=== PATIENT | female | born 1995 | race Caucasian/White ===

== ENCOUNTER 2018-11-13 23:23 | Emergency (ER) | payer SELFPAY ==
--- NOTE | 2018-11-14 00:12 | ER ---
Nurse's Notes [facility] Name: Kristyn Crain Age: 22 yrs Sex: Female : 1995 Arrival Date: 11/13/2018 Time: 23:30 Bed 11 Private MD: Diagnosis: Anxiety disorder, unspecified Presentation: 11/13 23:57 Presenting complaint: Patient states: she has been having anxiety for a week which is bb getting worse pt was seen at [facility] today and was med-screened and while driving home she was afraid if the anxiety didn't stop she might harm herself. Pt states she is from [place] and was diagnosed with anxiety, depression, and bipolar she was started on [place] but because she did not feel ready for therapy she did not continue the medication. Transition of care: patient was not received from another setting of care. Onset of symptoms was November 07, 2018. Risk Assessment: Do you want to hurt yourself or someone else? Patient reports no desire to harm self or others. Initial Sepsis Screen: Does the patient meet any 2 criteria? No. Patient's initial sepsis screen is negative. Does the patient have a suspected source of infection? No. Patient's initial sepsis screen is negative. Care prior to arrival: None. 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 - Social history:: Smoking status: Patient/guardian denies using tobacco, Patient/guardian denies using alcohol, street drugs. - Ebola Screening: : No symptoms or risks identified at this time. Screenin:02 Abuse screen: Denies threats or abuse. Nutritional screening: No deficits noted. bb Tuberculosis screening: No symptoms or risk factors identified. Fall Risk None identified. Assessment: 00:02 General: Appears in no apparent distress. Behavior is calm, cooperative. Pain: Denies bb pain. Neuro: Level of Consciousness is awake, alert, obeys commands, Oriented to person, place, time, situation. Neuro: Reports feeling anxious. Cardiovascular: No deficits noted. Respiratory: Respiratory effort is even, unlabored, Respiratory pattern is regular. GI: No signs and/or symptoms were reported involving the gastrointestinal system. Derm: Skin is pink, warm \T\ dry. Musculoskeletal: Circulation, motion, and sensation intact. 00:19 Reassessment: pt refused medication states she is feeling better and has an appointment bb tomorrow with [facility]. Instructed pt is symptoms worsen to return to ED for further evaluation and treatment. Pt verbalized understanding of and agrees to plan of care discharge instructions given. Pt ambulated with steady gait to exit accompanied by friend. Vital Signs: 00:00 BP 122 / 77; Pulse 78; Resp 16 S; Temp 98.3(O); Pulse Ox 100% on R/A; Weight 78.93 kg bb (R); Height 5 ft. 2 in. (157.48 cm) (R); Pain 0/10; 00:00 Body Mass Index 31.82 (78.93 kg, 157.48 cm) bb ED Course: 11/13 23:30 Patient arrived in ED. ds1 23:50 Day Tamez FNP-C is [facility]. kb 23:50 Reed Maldonado MD is Attending Physician. kb 11/14 00:00 Triage completed. bb 00:00 Arm band placed on Patient placed in an exam room, on a stretcher, on pulse oximetry. bb Family accompanied patient. 00:02 Patient has correct armband on for positive identification. Bed in low position. Call bb light in reach. Adult w/ patient. Pulse ox on. NIBP on. 00:02 No provider procedures requiring assistance completed. Patient did not have IV access bb during this emergency room visit. Administered Medications: 00:11 Not Given (Patient Refused): hydrOXYzine 25 mg PO once de Outcome: 00:11 Discharge ordered by . padmini 00:21 Discharged to home ambulatory, with friend. bb 00:21 Condition: stable 00:21 Discharge instructions given to patient, Instructed on discharge instructions, follow up and referral plans. Demonstrated understanding of instructions, follow-up care. 00:21 Patient left the ED. bb Signatures: Day Tamez FNP-C FNP-Ckb Sanford, Demi ds1 Hui Bro RN RN bb Bunch, Donnalyn RN de
--- NOTE | 2018-11-14 00:13 | EDPHYS ---
Physician Documentation [facility] Name: Kristyn Crain Age: 22 yrs Sex: Female : 1995 Arrival Date: 11/13/2018 Time: 23:30 Bed 11 Private MD: ED Physician Reed Maldonado HPI: 11/14 00:59 This 22 yrs old Female presents to ER via Ambulatory with complaints of kb Anxiety. 01:00 The patient presents to the emergency department with anxiety. Onset: The kb symptoms/episode began/occurred last week. Past psychiatric history: Prior diagnosis: bipolar disorder, depression. Associated signs and symptoms: Pertinent positives; anxiety, Pertinent negatives: abdominal pain, chest pain, chills, delusions, depression, fever, hallucinations, headache, homicidal ideation, nausea, night sweats, palpitations, paranoia, shortness of breath, substance abuse, suicide ideation, tremor, vomiting. Severity of symptoms: At their worst the symptoms were moderate in the emergency department the symptoms are unchanged. The patient has experienced similar episodes in the past. The patient has been recently seen by a physician: the ER physician, out of Town, with similar presenting complaints. Pt reports she has had anxiety attacks for the past week. Has been diagnosed with anxiety, depression and bipolar. Stopped lithium 7 months ago. Went to [place] ER today and was medically screened. Has appt [facility] tomorrow. . 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 - Social history:: Smoking status: Patient/guardian denies using tobacco, Patient/guardian denies using alcohol, street drugs. - Ebola Screening: : No symptoms or risks identified at this time. ROS: 00:59 Constitutional: Negative for fever, chills, and weight loss, ENT: Negative for injury, kb pain, and discharge, Neck: Negative for injury, pain, and swelling, Cardiovascular: Negative for chest pain, palpitations, and edema, Respiratory: Negative for shortness of breath, cough, wheezing, and pleuritic chest pain, Abdomen/GI: Negative for abdominal pain, nausea, vomiting, diarrhea, and constipation, MS/Extremity: Negative for injury and deformity, Skin: Negative for injury, rash, and discoloration, Neuro: Negative for headache, weakness, numbness, tingling, and seizure. 00:59 Psych: Positive for anxiety, Negative for depression, drug dependence, alcohol dependence, auditory hallucinations, visual hallucinations, homicidal ideation, insomnia, suicide gesture, suicidal ideation. Exam: 00:58 Constitutional: This is a well developed, well nourished patient who is awake, alert, kb and in no acute distress. Head/Face: Normocephalic, atraumatic. Chest/axilla: Normal chest wall appearance and motion. Nontender with no deformity. No lesions are appreciated. Cardiovascular: Regular rate and rhythm with a normal S1 and S2. No gallops, murmurs, or rubs. Normal PMI, no JVD. No pulse deficits. Respiratory: Lungs have equal breath sounds bilaterally, clear to auscultation and percussion. No rales, rhonchi or wheezes noted. No increased work of breathing, no retractions or nasal flaring. Abdomen/GI: Soft, non-tender, with normal bowel sounds. No distension or tympany. No guarding or rebound. No evidence of tenderness throughout. Skin: Warm, dry with normal turgor. Normal color with no rashes, no lesions, and no evidence of cellulitis. MS/ Extremity: Pulses equal, no cyanosis. Neurovascular intact. Full, normal range of motion. Neuro: Awake and alert, GCS 15, oriented to person, place, time, and situation. Cranial nerves II-XII grossly intact. Motor strength 5/5 in all extremities. Sensory grossly intact. Cerebellar exam normal. Normal gait. 00:58 Psych: Behavior/mood is pleasant, cooperative, Affect is calm, Oriented to person, place, time, Patient has no thoughts/intents to harm self or others. Judgement / Insight is normal. Memory is normal. Delusions/hallucinations are not present. Vital Signs: 00:00 BP 122 / 77; Pulse 78; Resp 16 S; Temp 98.3(O); Pulse Ox 100% on R/A; Weight 78.93 kg bb (R); Height 5 ft. 2 in. (157.48 cm) (R); Pain 0/10; 00:00 Body Mass Index 31.82 (78.93 kg, 157.48 cm) bb MDM: 11/13 23:50 Patient medically screened. kb 11/14 00:58 Data reviewed: vital signs, nurses notes. Data interpreted: Pulse oximetry: on room air kb is 100 %. Interpretation: normal. Counseling: I had a detailed discussion with the patient and/or guardian regarding: the historical points, exam findings, and any diagnostic results supporting the discharge/admit diagnosis, the need for outpatient follow up, a psychiatrist, to return to the emergency department if symptoms worsen or persist or if there are any questions or concerns that arise at home. ED course: Pt does not want to take any medication. Wants to go home and go to [facility] tomorrow. Administered Medications: 00:11 Not Given (Patient Refused): hydrOXYzine 25 mg PO once de Disposition: 02:07 Co-signature as Attending Physician, Reed Maldonado MD. yisel Disposition: 11/14/18 00:11 Discharged to Home. Impression: Anxiety disorder, unspecified. - Condition is Stable. - Discharge Instructions: Panic Attacks, [id number]. - Medication Reconciliation Form, Thank You Letter, Antibiotic Education, Prescription Opioid Use form. - Follow up: Emergency Department; When: As needed; Reason: Worsening of condition. Follow up: Private Physician; When: 2 - 3 days; Reason: Recheck today's complaints, Continuance of care, Re-evaluation by your physician. Signatures: Day Tamez, VINNY-Raiza CASILLAS-Hui Caal RN RN bb Starr, Gregory, MD MD Anali Bunch RN de Corrections: (The following items were deleted from the chart) 00:21 00:11 11/14/2018 00:11 Discharged to Home. Impression: Anxiety disorder, unspecified. bb Condition is Stable. Forms are Medication Reconciliation Form, Thank You Letter, Antibiotic Education, Prescription Opioid Use. Follow up: Emergency Department; When: As needed; Reason: Worsening of condition. Follow up: Private Physician; When: 2 - 3 days; Reason: Recheck today's complaints, Continuance of care, Re-evaluation by your physician. kb
[2018-11-14] MEDS ORDERED: hydrOXYzine HCl 25 MG TAB ONE (00:18)
== END 2018-11-14 00:21 | disposition home or self-care (01) ==
LOC: ER 23:23
DX: F41.9 Anxiety disorder, unspecified (principal); F32.9 Major depressive disorder, single episode, unspecified; F31.9 Bipolar disorder, unspecified
CPT/HCPCS: 99283

== ENCOUNTER 2018-11-14 16:54 | Emergency (ER) | payer SELFPAY ==
--- OUTSIDE RECORDS SUMMARY | 2018-11-14 16:57 | XMS REPORT ---
:1995 [facility] Address [address] [place] [address] Dr. Richardson [address] [place] [id number] Care Team Providers Name Role Phone Unavailable Unavailable Unavailable Problems This patient has no known problems. Allergies, Adverse Reactions, Alerts This patient has no known allergies or adverse reactions. Medications This patient has no known medications.
[2018-11-14] MEDS ORDERED: hydrOXYzine HCl 25 MG TAB ONE (18:29)
--- NOTE | 2018-11-14 19:24 | ER ---
Nurse's Notes [facility] Name: Kristyn Crain Age: 22 yrs Sex: Female : 1995 Arrival Date: 11/14/2018 Time: 16:55 Bed 6 Private MD: Diagnosis: Anxiety disorder, unspecified Presentation: 11/14 17:07 Presenting complaint: Patient states: i came last night with anxiety attacks, if it is ss worse to come back; the anxiety is worse today; denies SI tendencies;. Transition of care: patient was not received from another setting of care. Onset of symptoms was November 14, 2018. Risk Assessment: Do you want to hurt yourself or someone else? Patient reports no desire to harm self or others. Initial Sepsis Screen: Does the patient meet any 2 criteria? No. Patient's initial sepsis screen is negative. Does the patient have a suspected source of infection? No. Patient's initial sepsis screen is negative. Care prior to arrival: None. 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 - Social history:: Smoking status: Patient/guardian denies using tobacco. - Ebola Screening: : No symptoms or risks identified at this time. Screenin:00 Abuse screen: Denies threats or abuse. Denies injuries from another. Nutritional ph screening: No deficits noted. Tuberculosis screening: No symptoms or risk factors identified. Fall Risk None identified. Assessment: 18:15 General: Appears in no apparent distress. comfortable, Behavior is calm, cooperative. ph Pain: Denies pain. Neuro: Level of Consciousness is awake, alert, obeys commands, Oriented to person, place, time, situation. Cardiovascular: Capillary refill < 3 seconds in bilateral fingers Patient's skin is warm and dry. Respiratory: Airway is patent Respiratory effort is even, unlabored. Derm: Skin is intact, is healthy with good turgor, Skin is pink, warm \T\ dry. 19:30 Reassessment: Patient appears in no apparent distress at this time. Patient and/or ph family updated on plan of care and expected duration. Pain level reassessed. Patient is alert, oriented x 3, equal unlabored respirations, skin warm/dry/pink. Pt reports that anxiety has improved, d/c home w/ SO. Vital Signs: 17:08 BP 116 / 75; Pulse 84; Resp 18; Temp 97.7(TE); Pulse Ox 99% on R/A; Weight 78.93 kg; Height 5 ft. 2 in. (157.48 cm); 18:30 BP 115 / 78; Pulse 76; Resp 16; Temp 98.0; Pulse Ox 99% on R/A; ph 17:08 Body Mass Index 31.83 (78.93 kg, 157.48 cm) ED Course: 16:55 Patient arrived in ED. as 17:08 Triage completed. 17:09 Arm band placed on right wrist. 17:47 Coy Salinas [facility] is [email or web address]] 17:47 Erick Henry MD is Attending Physician. [facility] [[email or web address]] 18:00 Patient has correct armband on for positive identification. Bed in low position. Call ph light in reach. Pulse ox on. NIBP on. Door closed. Warm blanket given. 18:14 Sosa Bates RN is Primary Nurse. ph 19:13 Attending Physician role handed off by Erick Henry MD [facility] 19:13 Montana Jordan MD is Attending Physician. [facility] 19:45 No provider procedures requiring assistance completed. Patient did not have IV access ph during this emergency room visit. Administered Medications: 18:21 Drug: hydrOXYzine 50 mg Route: PO; ph 19:00 Follow up: Response: No adverse reaction; Pain is decreased ph Outcome: 19:23 Discharge ordered by . Luann 19:45 Discharged to home ambulatory, with significant other. ph 19:45 Condition: improved 19:45 Discharge instructions given to patient, Instructed on discharge instructions, follow up and referral plans. medication usage, Demonstrated understanding of instructions, follow-up care, medications, Prescriptions given X 1. 19:47 Patient left the ED. Signatures: Montana Jordan MD MD cha Martinez, Amelia as Smirch, Shelby, RN RN Coy Salinas PA PA [facility] [[email or web address]] Sosa Bates RN RN ph Corrections: (The following items were deleted from the chart) 17:32 17:07 Acuity: ISAIAH 3 ss ss
--- NOTE | 2018-11-14 19:24 | EDPHYS ---
Physician Documentation [facility] Name: Kristyn Crain Age: 22 yrs Sex: Female : 1995 Arrival Date: 11/14/2018 Time: 16:55 Bed 6 Private MD: ED Physician Montana Jordan HPI: 11/14 18:26 This 22 yrs old Female presents to ER via Ambulatory with complaints of jr8 Anxiety. 18:26 The patient presents to the emergency department with anxiety. Onset: The jr8 symptoms/episode began/occurred gradually, 1 week(s) ago. Past psychiatric history: Prior diagnosis: bipolar disorder, depression. Associated signs and symptoms: The patient has no apparent associated signs or symptoms. Severity of symptoms: At their worst the symptoms were mild in the emergency department the symptoms are unchanged. The patient has experienced similar episodes in the past, a few times. The patient has been recently seen by a physician:. Patient stated that she periodically has anxiety attacks. Stated that she normally is able to control them but for the past week cannot. Has appointment with [facility]. Stated that she came to ED last night but was to afraid to take anything. Came back today because she knows she needs the help . 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 - Social history:: Smoking status: Patient/guardian denies using tobacco. - Ebola Screening: : No symptoms or risks identified at this time. ROS: 18:26 Eyes: Negative for injury, pain, redness, and discharge, ENT: Negative for injury, jr8 pain, and discharge, Neck: Negative for injury, pain, and swelling, Cardiovascular: Negative for chest pain, palpitations, and edema, Respiratory: Negative for shortness of breath, cough, wheezing, and pleuritic chest pain, Abdomen/GI: Negative for abdominal pain, nausea, vomiting, diarrhea, and constipation, Back: Negative for injury and pain, MS/Extremity: Negative for injury and deformity, Skin: Negative for injury, rash, and discoloration, Neuro: Negative for headache, weakness, numbness, tingling, and seizure. 18:26 Psych: Positive for anxiety, Negative for depression, auditory hallucinations, visual hallucinations, insomnia, suicide gesture, suicidal ideation. Exam: 18:26 Eyes: Pupils equal round and reactive to light, extra-ocular motions intact. Lids and jr8 lashes normal. Conjunctiva and sclera are non-icteric and not injected. Cornea within normal limits. Periorbital areas with no swelling, redness, or edema. ENT: Nares patent. No nasal discharge, no septal abnormalities noted. Tympanic membranes are normal and external auditory canals are clear. Oropharynx with no redness, swelling, or masses, exudates, or evidence of obstruction, uvula midline. Mucous membranes moist. Neck: Trachea midline, no thyromegaly or masses palpated, and no cervical lymphadenopathy. Supple, full range of motion without nuchal rigidity, or vertebral point tenderness. No Meningismus. Cardiovascular: Regular rate and rhythm with a normal S1 and S2. No gallops, murmurs, or rubs. Normal PMI, no JVD. No pulse deficits. Respiratory: Lungs have equal breath sounds bilaterally, clear to auscultation and percussion. No rales, rhonchi or wheezes noted. No increased work of breathing, no retractions or nasal flaring. Abdomen/GI: Soft, non-tender, with normal bowel sounds. No distension or tympany. No guarding or rebound. No evidence of tenderness throughout. Back: No spinal tenderness. No costovertebral tenderness. Full range of motion. Skin: Warm, dry with normal turgor. Normal color with no rashes, no lesions, and no evidence of cellulitis. MS/ Extremity: Pulses equal, no cyanosis. Neurovascular intact. Full, normal range of motion. Neuro: Awake and alert, GCS 15, oriented to person, place, time, and situation. Cranial nerves II-XII grossly intact. Motor strength 5/5 in all extremities. Sensory grossly intact. Cerebellar exam normal. Normal gait. Psych: Awake, alert, with orientation to person, place and time. Behavior, mood, and affect are within normal limits. Vital Signs: 17:08 BP 116 / 75; Pulse 84; Resp 18; Temp 97.7(TE); Pulse Ox 99% on R/A; Weight 78.93 kg; ss Height 5 ft. 2 in. (157.48 cm); 18:30 BP 115 / 78; Pulse 76; Resp 16; Temp 98.0; Pulse Ox 99% on R/A; ph 17:08 Body Mass Index 31.83 (78.93 kg, 157.48 cm) ss MDM: 18:02 Patient medically screened. jr8 19:21 Data reviewed: vital signs, nurses notes, and as a result, I will discharge patient. jr8 Data interpreted: Pulse oximetry: on room air is 99 %. Interpretation: normal. Counseling: I had a detailed discussion with the patient and/or guardian regarding: the historical points, exam findings, and any diagnostic results supporting the discharge/admit diagnosis, the need for outpatient follow up, a psychiatrist, to return to the emergency department if symptoms worsen or persist or if there are any questions or concerns that arise at home. Response to treatment: the patient's symptoms have markedly improved after treatment. Administered Medications: 18:21 Drug: hydrOXYzine 50 mg Route: PO; ph 19:00 Follow up: Response: No adverse reaction; Pain is decreased ph Disposition: 11/15 07:01 Co-signature as Attending Physician, Montana Jordan MD I agree with the assessment and kdr plan of care. Disposition: 11/14/18 19:23 Discharged to Home. Impression: Anxiety disorder, unspecified. - Condition is Stable. - Discharge Instructions: Panic Attacks, Generalized Anxiety Disorder. - Prescriptions for Hydroxyzine HCl 50 mg Oral Tablet - take 1 tablet by ORAL route every 8 hours As needed; 90 tablet. - Medication Reconciliation Form, Thank You Letter, Antibiotic Education, Prescription Opioid Use form. - Follow up: Private Physician; When: 2 - 3 days; Reason: Recheck today's complaints, Continuance of care, Re-evaluation by your physician. - Problem is new. - Symptoms have improved. Signatures: Erick Henry MD MD [facility] Darlene Gonzalez RN RN Coy Salinas PA PA jr8 Sosa Bates RN RN ph Corrections: (The following items were deleted from the chart) 11/14 19:47 19:23 11/14/2018 19:23 Discharged to Home. Impression: Anxiety disorder, unspecified. ss Condition is Stable. Forms are Medication Reconciliation Form, Thank You Letter, Antibiotic Education, Prescription Opioid Use. Follow up: Private Physician; When: 2 - 3 days; Reason: Recheck today's complaints, Continuance of care, Re-evaluation by your physician. Problem is new. Symptoms have improved. jr8
== END 2018-11-14 19:47 | disposition home or self-care (01) ==
LOC: ER 16:54
DX: F41.9 Anxiety disorder, unspecified (principal); F31.9 Bipolar disorder, unspecified; F32.9 Major depressive disorder, single episode, unspecified
CPT/HCPCS: 99283

== ENCOUNTER 2018-11-14 22:15 | Emergency (ER) | payer SELFPAY ==
--- OUTSIDE RECORDS SUMMARY | 2018-11-14 22:18 | XMS REPORT ---
:1995 [facility] Address [address] [place] [address] Dr. Richardson [address] [place] [id number] Care Team Providers Name Role Phone Unavailable Unavailable Unavailable Problems This patient has no known problems. Allergies, Adverse Reactions, Alerts This patient has no known allergies or adverse reactions. Medications This patient has no known medications.
--- NOTE | 2018-11-14 22:50 | EDPHYS ---
Physician Documentation [facility] Name: Kristyn Crain Age: 22 yrs Sex: Female : 1995 Arrival Date: 11/14/2018 Time: 22:18 Bed 14 Private MD: ED Physician Chintan Snow HPI: 11/14 22:46 This 22 yrs old Female presents to ER via Ambulatory with complaints of jay jay Anxiety, Suicidal Ideation. 22:46 The patient presents to the emergency department with anxiety, depression, suicide jay jay ideation, and the patient has a plan, to cut oneself and bleed. Onset: The symptoms/episode began/occurred 2 day(s) ago. Past psychiatric history: Prior diagnosis: bipolar disorder, depression, Psychiatric medications include: none. Associated signs and symptoms: The patient has no apparent associated signs or symptoms. Severity of symptoms: At their worst the symptoms were mild. The patient has not experienced similar symptoms in the past. 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 - Social history:: Smoking status: Patient/guardian denies using tobacco. - Ebola Screening: : Patient negative for fever greater than or equal to 101.5 degrees Fahrenheit, and additional compatible Ebola Virus Disease symptoms Patient denies exposure to infectious person Patient denies travel to an Ebola-affected area in the 21 days before illness onset No symptoms or risks identified at this time. - Family history:: not pertinent. ROS: 22:46 Constitutional: Negative for fever, chills, and weight loss, Eyes: Negative for injury, jay jay pain, redness, and discharge, ENT: Negative for injury, pain, and discharge, Neck: Negative for injury, pain, and swelling, Cardiovascular: Negative for chest pain, palpitations, and edema, Respiratory: Negative for shortness of breath, cough, wheezing, and pleuritic chest pain, Abdomen/GI: Negative for abdominal pain, nausea, vomiting, diarrhea, and constipation, Back: Negative for injury and pain, : Negative for injury, bleeding, discharge, and swelling, MS/Extremity: Negative for injury and deformity, Skin: Negative for injury, rash, and discoloration, Neuro: Negative for headache, weakness, numbness, tingling, and seizure, Allergy/Immunology: Negative for hives, rash, and allergies, Endocrine: Negative for neck swelling, polydipsia, polyuria, polyphagia, and marked weight changes, Hematologic/Lymphatic: Negative for swollen nodes, abnormal bleeding, and unusual bruising. 22:46 Psych: Positive for anxiety, depression, suicidal ideation. Exam: 22:46 Constitutional: This is a well developed, well nourished patient who is awake, alert, jay jay and in no acute distress. Head/Face: Normocephalic, atraumatic. Eyes: Pupils equal round and reactive to light, extra-ocular motions intact. Lids and lashes normal. Conjunctiva and sclera are non-icteric and not injected. Cornea within normal limits. Periorbital areas with no swelling, redness, or edema. ENT: Nares patent. No nasal discharge, no septal abnormalities noted. Tympanic membranes are normal and external auditory canals are clear. Oropharynx with no redness, swelling, or masses, exudates, or evidence of obstruction, uvula midline. Mucous membranes moist. Neck: Trachea midline, no thyromegaly or masses palpated, and no cervical lymphadenopathy. Supple, full range of motion without nuchal rigidity, or vertebral point tenderness. No Meningismus. Chest/axilla: Normal chest wall appearance and motion. Nontender with no deformity. No lesions are appreciated. Cardiovascular: Regular rate and rhythm with a normal S1 and S2. No gallops, murmurs, or rubs. Normal PMI, no JVD. No pulse deficits. Respiratory: Lungs have equal breath sounds bilaterally, clear to auscultation and percussion. No rales, rhonchi or wheezes noted. No increased work of breathing, no retractions or nasal flaring. Abdomen/GI: Soft, non-tender, with normal bowel sounds. No distension or tympany. No guarding or rebound. No evidence of tenderness throughout. Back: No spinal tenderness. No costovertebral tenderness. Full range of motion. Female : Normal external genitalia. Skin: Warm, dry with normal turgor. Normal color with no rashes, no lesions, and no evidence of cellulitis. MS/ Extremity: Pulses equal, no cyanosis. Neurovascular intact. Full, normal range of motion. Neuro: Awake and alert, GCS 15, oriented to person, place, time, and situation. Cranial nerves II-XII grossly intact. Motor strength 5/5 in all extremities. Sensory grossly intact. Cerebellar exam normal. Normal gait. Psych: Awake, alert, with orientation to person, place and time. Behavior, mood, and affect are within normal limits. Vital Signs: 22:24 BP 121 / 76; Pulse 102; Resp 18; Temp 98.2; Pulse Ox 96% on R/A; Weight 78.93 kg; ed1 Height 5 ft. 2 in. (157.48 cm); Pain 7/10; 11/15 03:09 BP 106 / 81; Pulse 66; Resp 16; Pulse Ox 98% on R/A; mt 06:26 BP 102 / 68; Pulse 74; Resp 16; Pulse Ox 99% on R/A; mt 08:57 BP 106 / 68; Pulse 67; Resp 15; Temp 98.2(O); Pulse Ox 99% on R/A; Pain 0/10; hb 16:00 BP 105 / 73; Pulse 73; Resp 18; Temp 98.6; Pulse Ox 98% ; Pain 0/10; dj 22:57 BP 105 / 81; Pulse 81; Resp 16; Temp 98.6(O); Pulse Ox 100% on R/A; ag4 11/16 07:31 BP 104 / 74; Pulse 72; Resp 18; Temp 97.4(O); Pulse Ox 99% on R/A; mh5 11:23 BP 99 / 61; Pulse 71; Resp 16; Temp 98.2(O); Pulse Ox 99% on R/A; mh5 15:33 BP 109 / 71; Pulse 75; Resp 16; Temp 98.7(O); Pulse Ox 99% on R/A; mh5 19:00 BP 108 / 72; Pulse 84; Resp 18; Temp 98.5; Pulse Ox 92% on R/A; kj1 11/17 00:09 BP 109 / 80; Pulse 89; Resp 18; Temp 98.5; Pulse Ox 100% on R/A; tr4 06:32 BP 103 / 69; Pulse 81; Resp 14; Temp 97.5; Pulse Ox 99% on R/A; rr5 10:42 BP 99 / 68; Pulse 78; Resp 15; Temp 97.8(O); Pulse Ox 99% on R/A; mh5 15:00 BP 106 / 77; Pulse 86; Resp 16; Temp 98.2(O); Pulse Ox 99% on R/A; mh5 17:32 BP 102 / 78; Pulse 78; Resp 16; Temp 98.0(O); Pulse Ox 98% on R/A; mh5 21:30 BP 116 / 75; Pulse 75; Resp 18; Temp 98.6; Pulse Ox 97% ; Pain 0/10; sr6 11/18 01:00 BP 108 / 69; Pulse 74; Resp 18; Temp 98.3; Pulse Ox 97% ; Pain 0/10; sr6 06:00 BP 100 / 74; Pulse 65; Resp 17; Temp 97.9; Pulse Ox 98% ; Pain 0/10; sr6 10:30 BP 107 / 72; Pulse 71; Resp 16; Temp 97.8; Pulse Ox 100% on R/A; ph 11/14 22:24 Body Mass Index 31.82 (78.93 kg, 157.48 cm) ed1 MDM: 11/14 22:32 Patient medically screened. [facility] 22:48 Data reviewed: vital signs, nurses notes, lab test result(s), EKG. jay jay 11/16 07:27 ED course: Pt calm, resting, normal vitals, awaiting transfer for SI. . rn 11/17 01:25 ED course: The patient continues to rest comfortably in the ED. She continues to kdr maintain her SI intentions. There are no other ongoing or new concerns at this time. 05:20 ED course: The patient is sleeping and has not needed any further medical intervention kdr to remain stable. 11/18 07:27 ED course: Pt calm and resting this AM, still reports suicidal thoughts but feels less rn impulsive, still waiting on transfer, no acceptance yet. . 10:11 ED course: Called out [facility] again because no luck of transfer/placement as well as rn patient denying suicidal ideation for last 2 days. Evaluated and deemed safe for discharge, patient feels much better after talking with nurse aide evaluator and they have planned for expedited outpt workup and evaluation. Denies suicidal ideation to me and feels safer going home.. 11/14 22:32 Order name: Acetaminophen; Complete Time: 02:32 [facility] 11/14 22:32 Order name: Basic Metabolic Panel; Complete Time: 02:32 [facility] 11/14 22:32 Order name: CBC with Diff; Complete Time: 02:32 [facility] 11/14 22:32 Order name: ETOH Level; Complete Time: 02:32 [facility] 11/14 22:32 Order name: Hepatic Function; Complete Time: 02:32 [facility] 11/14 22:32 Order name: PT-INR; Complete Time: 02:32 [facility] 11/14 22:32 Order name: Ptt, Activated; Complete Time: 02:32 [facility] 11/14 22:32 Order name: Salicylate; Complete Time: 02:32 [facility] 11/14 22:32 Order name: Urine Drug Screen; Complete Time: 02:32 [facility] 11/14 22:59 Order name: Urine Dipstick--Ancillary (enter results) [facility] 11/14 22:59 Order name: Urine --Ancillary (enter results) [facility] 11/14 22:32 Order name: Urine Test (obtain specimen); Complete Time: 22:57 [facility] 11/14 22:32 Order name: EKG; Complete Time: 22:33 [facility] 11/14 22:32 Order name: EKG - Nurse/Tech; Complete Time: 23:06 [facility] 11/14 22:32 Order name: IV Saline Lock; Complete Time: 22:57 [facility] 11/14 22:32 Order name: Labs collected and sent; Complete Time: 22:57 [facility] 11/14 22:32 Order name: Urine Dipstick-Ancillary (obtain specimen); Complete Time: 22:57 [facility] 11/15 06:31 Order name: Diet Regular; Complete Time: 06:31 [facility] 11/15 16:05 Order name: Diet Regular; Complete Time: 16:05 11/16 07:10 Order name: Diet Regular; Complete Time: 07:10 [facility] 11/16 12:13 Order name: Diet Regular; Complete Time: 12:13 [facility] 11/17 07:22 Order name: Diet Regular; Complete Time: 07:22 [facility] 11/17 10:50 Order name: Diet Regular; Complete Time: 10:51 [facility] 11/18 07:13 Order name: Diet Regular; Complete Time: 07:14 ph Administered Medications: 11/15 02:54 Drug: Potassium Effervescent Tablet 50 mEq Route: PO; ak1 02:54 Follow up: Response: No adverse reaction ak1 11/16 01:57 Drug: hydrOXYzine 50 mg Route: PO; ed1 02:30 Follow up: Response: No adverse reaction; Anxiety decreased ed1 11/17 00:09 Drug: hydrOXYzine 50 mg {Note: dr. benjamin informed and ordered.} Route: PO; rr5 03:00 Follow up: Response: No adverse reaction; Anxiety decreased jl3 11/18 01:25 Drug: hydrOXYzine 50 mg Route: PO; jb4 02:25 Follow up: Response: No adverse reaction; Marked relief of symptoms jb4 10:37 Drug: hydrOXYzine 50 mg Route: PO; ph 10:37 Follow up: Response: No adverse reaction; Medication administered at discharge. ph Disposition: 11/18/18 10:13 Discharged to Home. Impression: Anxiety disorder, unspecified, Suicidal ideations. - Condition is Stable. - Discharge Instructions: Suicidal Feelings: How to Help Yourself, Stress and Stress Management, Generalized Anxiety Disorder. - Medication Reconciliation Form, Thank You Letter, Antibiotic Education, Prescription Opioid Use form. - Follow up: Private Physician; When: As needed; Reason: Recheck today's complaints, Re-evaluation by your physician. - Problem is new. - Symptoms have improved. Signatures: Dispatcher [employer] EDMS Montana Jordan MD MD cha Rittger, Kevin, MD MD kdr Nieto, Roman, MD MD rn Riggs, Erika RN RN ed1 Swathi Lay RN RN ak1 Sosa Bates RN RN Cameron Rodriguez RN RN jb4 Asa Gilbert RN RN rr5 Mihir Reynolds RN jl3 Corrections: (The following items were deleted from the chart) 10:12 11/14 22:49 11/14/2018 22:49 Transfer ordered to Psych Facility. Diagnosis is Anxiety rn disorder, unspecified; Suicidal ideations; Bipolar disorder; Major depressive disorder, recurrent. Reason for transfer: Higher level of care. Accepting physician is psych. Condition is Stable. Problem is new. Symptoms have improved. [facility] 11/18 10:48 10:13 11/18/2018 10:13 Discharged to Home. Impression: Anxiety disorder, unspecified; ph Suicidal ideations. Condition is Stable. Forms are Medication Reconciliation Form, Thank You Letter, Antibiotic Education, Prescription Opioid Use. Follow up: Private Physician; When: As needed; Reason: Recheck today's complaints, Re-evaluation by your physician. Problem is new. Symptoms have improved. rn
--- NOTE | 2018-11-14 22:50 | ER ---
Nurse's Notes [facility] Name: Krsityn Crain Age: 22 yrs Sex: Female : 1995 Arrival Date: 11/14/2018 Time: 22:18 Bed 14 Private MD: Diagnosis: Anxiety disorder, unspecified;Suicidal ideations Presentation: 11/14 22:23 Presenting complaint: Patient states: I was here earlier and they told me to come back ed1 if things got worse and now I want to hurt myself. Transition of care: patient was not received from another setting of care. Onset of symptoms was November 14, 2018. Risk Assessment: Do you want to hurt yourself or someone else? Patient reports no desire to harm self or others. Initial Sepsis Screen: Does the patient meet any 2 criteria? No. Patient's initial sepsis screen is negative. Does the patient have a suspected source of infection? No. Patient's initial sepsis screen is negative. Care prior to arrival: None. 22:23 Method Of Arrival: Ambulatory ed1 22:23 Acuity: ISAIAH 2 ed1 Triage Assessment: 22:24 General: Appears in no apparent distress. Behavior is calm, cooperative. Pain: ed1 Complains of pain in chest Pain currently is 7 out of 10 on a pain scale. Quality of pain is described as pressure. APPLICATION ENGINEER: 22:24 LMP 11/14/2018 ed1 Historical: - Allergies: 22:24 No Known Allergies; ed1 - Home Meds: 22:24 None [Active]; ed1 - PMHx: 22:24 Anxiety; Bipolar disorder; Depression; ed1 - PSHx: 22:24 None; ed1 - Immunization history:: Adult Immunizations up to date. - Social history:: Smoking status: Patient/guardian denies using tobacco. - Ebola Screening: : Patient negative for fever greater than or equal to 101.5 degrees Fahrenheit, and additional compatible Ebola Virus Disease symptoms Patient denies exposure to infectious person Patient denies travel to an Ebola-affected area in the 21 days before illness onset No symptoms or risks identified at this time. - Family history:: not pertinent. Screenin:31 Abuse screen: Denies threats or abuse. Denies injuries from another. Nutritional ak1 screening: No deficits noted. Tuberculosis screening: No symptoms or risk factors identified. Fall Risk None identified. Assessment: 22:31 General: Appears in no apparent distress. Behavior is calm, cooperative. Pain: Denies ak1 pain. Neuro: Level of Consciousness is awake, alert, obeys commands, Oriented to person, place, time, situation, Spray Machine Operator are equal bilaterally Moves all extremities. Gait is steady, Speech is normal, Facial symmetry appears normal. Cardiovascular: No deficits noted. Respiratory: No deficits noted. GI: No signs and/or symptoms were reported involving the gastrointestinal system. : No signs and/or symptoms were reported regarding the genitourinary system. EENT: No signs and/or symptoms were reported regarding the EENT system. Derm: No signs and/or symptoms reported regarding the dermatologic system. Musculoskeletal: No signs and/or symptoms reported regarding the musculoskeletal system. 23:40 Reassessment: Patient appears in no apparent distress at this time. pt resting with ak1 eyes closed, resp even and unlabored. family at bedside, sitter at bedside. will continue to monitor. . 11/15 00:59 Reassessment: Patient appears in no apparent distress at this time. No changes from ak1 previously documented assessment. pt family declined recliner chair that was offered. 02:46 Reassessment: Patient appears in no apparent distress at this time. No changes from ak1 previously documented assessment. pt information sent to psychiatric facilities, pt waiting on acceptance. 04:43 Reassessment: Patient appears in no apparent distress at this time. No changes from ak1 previously documented assessment. pt resting with eyes closed, resp even and unlabored. family at bedside. sitter remains at bedside. . 06:16 Reassessment: Patient appears in no apparent distress at this time. No changes from ak1 previously documented assessment. 08:56 Reassessment: Pt resting with eyes closed, easily arouses to verbal stimuli. Reports hb still feeling suicidal, stated "If you let me go home I am afraid I will go through with it this time." VSS. Family at bedside. 09:30 Reassessment: Patient appears in no apparent distress at this time. No changes from hb previously documented assessment. Patient and/or family updated on plan of care and expected duration. Pain level reassessed. Patient is alert, oriented x 3, equal unlabored respirations, skin warm/dry/pink. 10:30 Reassessment: Patient appears in no apparent distress at this time. No changes from hb previously documented assessment. Patient and/or family updated on plan of care and expected duration. Pain level reassessed. Patient is alert, oriented x 3, equal unlabored respirations, skin warm/dry/pink. 11:30 Reassessment: Patient appears in no apparent distress at this time. No changes from hb previously documented assessment. Patient and/or family updated on plan of care and expected duration. Pain level reassessed. Patient is alert, oriented x 3, equal unlabored respirations, skin warm/dry/pink. 12:30 Reassessment: Patient appears in no apparent distress at this time. No changes from hb previously documented assessment. Patient and/or family updated on plan of care and expected duration. Pain level reassessed. Patient is alert, oriented x 3, equal unlabored respirations, skin warm/dry/pink. 13:30 Reassessment: Patient appears in no apparent distress at this time. No changes from hb previously documented assessment. Patient and/or family updated on plan of care and expected duration. Pain level reassessed. Patient is alert, oriented x 3, equal unlabored respirations, skin warm/dry/pink. 14:30 Reassessment: Patient appears in no apparent distress at this time. No changes from hb previously documented assessment. Patient and/or family updated on plan of care and expected duration. Pain level reassessed. Patient is alert, oriented x 3, equal unlabored respirations, skin warm/dry/pink. 15:30 Reassessment: Patient appears in no apparent distress at this time. No changes from hb previously documented assessment. Patient and/or family updated on plan of care and expected duration. Pain level reassessed. Patient is alert, oriented x 3, equal unlabored respirations, skin warm/dry/pink. 16:30 Reassessment: Patient appears in no apparent distress at this time. No changes from hb previously documented assessment. Patient and/or family updated on plan of care and expected duration. Pain level reassessed. Patient is alert, oriented x 3, equal unlabored respirations, skin warm/dry/pink. 17:30 Reassessment: Patient appears in no apparent distress at this time. No changes from hb previously documented assessment. Patient and/or family updated on plan of care and expected duration. Pain level reassessed. Patient is alert, oriented x 3, equal unlabored respirations, skin warm/dry/pink. 18:23 Reassessment: Patient appears in no apparent distress at this time. No changes from hb previously documented assessment. Patient and/or family updated on plan of care and expected duration. Pain level reassessed. Patient is alert, oriented x 3, equal unlabored respirations, skin warm/dry/pink. 19:15 Reassessment: Patient appears in no apparent distress at this time. Patient and/or jb4 family updated on plan of care and expected duration. Pain level reassessed. Patient is alert, oriented x 3, equal unlabored respirations, skin warm/dry/pink. 20:15 Reassessment: Patient appears in no apparent distress at this time. Patient and/or jb4 family updated on plan of care and expected duration. Pain level reassessed. Patient is alert, oriented x 3, equal unlabored respirations, skin warm/dry/pink. 21:15 Reassessment: Patient appears in no apparent distress at this time. Patient and/or jb4 family updated on plan of care and expected duration. Pain level reassessed. Patient is alert, oriented x 3, equal unlabored respirations, skin warm/dry/pink. 22:15 Reassessment: Patient appears in no apparent distress at this time. Patient and/or jb4 family updated on plan of care and expected duration. Pain level reassessed. Patient is alert, oriented x 3, equal unlabored respirations, skin warm/dry/pink. 23:30 Reassessment: Patient appears in no apparent distress at this time. Patient and/or jb4 family updated on plan of care and expected duration. Pain level reassessed. Patient is alert, oriented x 3, equal unlabored respirations, skin warm/dry/pink. 11/16 00:30 Reassessment: Patient appears in no apparent distress at this time. Patient and/or jb4 family updated on plan of care and expected duration. Pain level reassessed. Patient is alert, oriented x 3, equal unlabored respirations, skin warm/dry/pink. 01:57 Reassessment: Pt reports feeling very anxious. Dr. Jordan notified. New orders ed1 received. 07:00 Reassessment: Patient appears in no apparent distress at this time. Patient and/or tw2 family updated on plan of care and expected duration. Pain level reassessed. Patient is alert, oriented x 3, equal unlabored respirations, skin warm/dry/pink. Assumed Primary Nurse for this pt. Pt appears to be sleeping at this time, significant other at bedside at this time. Sitter remains at bedside throughout shift. 08:00 Reassessment: Patient appears in no apparent distress at this time. No changes from tw2 previously documented assessment. Patient and/or family updated on plan of care and expected duration. Pain level reassessed. Patient is alert, oriented x 3, equal unlabored respirations, skin warm/dry/pink. 09:00 Reassessment: Patient appears in no apparent distress at this time. No changes from tw2 previously documented assessment. Patient and/or family updated on plan of care and expected duration. Pain level reassessed. Patient is alert, oriented x 3, equal unlabored respirations, skin warm/dry/pink. 10:00 Reassessment: Patient appears in no apparent distress at this time. Patient is alert, tw2 oriented x 3, equal unlabored respirations, skin warm/dry/pink. pt appears to be sleeping at this time. 11:00 Reassessment: Patient appears in no apparent distress at this time. No changes from tw2 previously documented assessment. Patient and/or family updated on plan of care and expected duration. Pain level reassessed. Patient is alert, oriented x 3, equal unlabored respirations, skin warm/dry/pink. pt appears to be sleeping. 11:45 Reassessment: Patient is alert, oriented x 3, equal unlabored respirations, skin em5 warm/dry/pink. General: Appears comfortable, Behavior is calm. 12:00 Reassessment: No changes from previously documented assessment. General: Appears in no em5 apparent distress. comfortable, Behavior is calm, cooperative. 13:00 Reassessment: Patient appears in no apparent distress at this time. No changes from tw2 previously documented assessment. Patient and/or family updated on plan of care and expected duration. Pain level reassessed. Patient is alert, oriented x 3, equal unlabored respirations, skin warm/dry/pink. 14:00 Reassessment: Patient appears in no apparent distress at this time. No changes from tw2 previously documented assessment. Patient and/or family updated on plan of care and expected duration. Pain level reassessed. Patient is alert, oriented x 3, equal unlabored respirations, skin warm/dry/pink. 15:00 Reassessment: Patient appears in no apparent distress at this time. No changes from tw2 previously documented assessment. Patient and/or family updated on plan of care and expected duration. Pain level reassessed. Patient is alert, oriented x 3, equal unlabored respirations, skin warm/dry/pink. pt sitting up talking to significant other at this time. 16:00 Reassessment: Patient appears in no apparent distress at this time. No changes from tw2 previously documented assessment. Patient and/or family updated on plan of care and expected duration. Pain level reassessed. Patient is alert, oriented x 3, equal unlabored respirations, skin warm/dry/pink. pt appears to be sleeping at this time. 17:00 Reassessment: Patient appears in no apparent distress at this time. No changes from tw2 previously documented assessment. Patient and/or family updated on plan of care and expected duration. Pain level reassessed. Patient is alert, oriented x 3, equal unlabored respirations, skin warm/dry/pink. pt appears to be sleeping at this time. 18:00 Reassessment: Patient appears in no apparent distress at this time. No changes from tw2 previously documented assessment. Patient and/or family updated on plan of care and expected duration. Pain level reassessed. Patient is alert, oriented x 3, equal unlabored respirations, skin warm/dry/pink. pt appears to be sleeping at this time, significant other is at bedside. 19:00 Reassessment: Patient appears in no apparent distress at this time. No changes from tw2 previously documented assessment. Patient and/or family updated on plan of care and expected duration. Pain level reassessed. pt appears to be sleeping at this time. 19:10 Reassessment: awaiting for mental health facility acceptance. General: Appears in no rr5 apparent distress. comfortable, Behavior is calm, cooperative, appropriate for age. Pain: Denies pain. Neuro: Level of Consciousness is awake, alert, Oriented to person, place, time, situation, Appropriate for age. Cardiovascular: Capillary refill < 3 seconds Patient's skin is warm and dry. Respiratory: Airway is patent Respiratory effort is even, unlabored, Respiratory pattern is regular, symmetrical. GI: No signs and/or symptoms were reported involving the gastrointestinal system. : No signs and/or symptoms were reported regarding the genitourinary system. EENT: No signs and/or symptoms were reported regarding the EENT system. Derm: No signs and/or symptoms reported regarding the dermatologic system. Musculoskeletal: Capillary refill < 3 seconds, Range of motion: intact in all extremities. 20:30 Reassessment: Patient appears in no apparent distress at this time. Patient is alert, rr5 oriented x 3, equal unlabored respirations, skin warm/dry/pink. watching TV, comfortably. 21:26 Reassessment: Patient appears in no apparent distress at this time. Patient is alert, rr5 oriented x 3, equal unlabored respirations, skin warm/dry/pink. asleep on bed on side lying position. 22:10 Reassessment: Patient appears in no apparent distress at this time. No changes from rr5 previously documented assessment. 23:19 Reassessment: Patient appears in no apparent distress at this time. Patient is alert, rr5 oriented x 3, equal unlabored respirations, skin warm/dry/pink. 11/17 00:05 Reassessment: Patient appears in no apparent distress at this time. Patient is alert, rr5 oriented x 3, equal unlabored respirations, skin warm/dry/pink. patient verbalized she is about to have a panic attack. ED provider informed with order made and carried out. 00:44 Reassessment: Patient appears in no apparent distress at this time. Patient is alert, rr5 oriented x 3, equal unlabored respirations, skin warm/dry/pink. Patient states feeling better. 01:20 Reassessment: Patient appears in no apparent distress at this time. asleep on bed rr5 comfortably. 02:21 General: Assumed care. Pt lying in bed, eyes closed, RR even \\T\\ unlabored. Wakes easily. jl3 . 03:31 General: Care relinquished to DEANGELO Martel. jl3 04:30 Reassessment: Patient appears in no apparent distress at this time. No changes from rr5 previously documented assessment. Patient and/or family updated on plan of care and expected duration. Pain level reassessed. 05:00 Reassessment: Patient appears in no apparent distress at this time. Patient and/or rr5 family updated on plan of care and expected duration. Pain level reassessed. no complaints made, breathing spontaneously at room air. 06:00 Reassessment: Patient appears in no apparent distress at this time. asleep on bed. no rr5 complaints made. 07:00 Reassessment: Patient appears in no apparent distress at this time. asleep on side rr5 lying position breathing spontaneously at room air. 07:00 Reassessment: Received report from DEANGELO Bray at this time, assumed Primary Nurse for tw2 this pt, sitter remains at bedside at this time and throughout shift. 08:00 Reassessment: Patient appears in no apparent distress at this time. No changes from tw2 previously documented assessment. Patient and/or family updated on plan of care and expected duration. Pain level reassessed. Patient is alert, oriented x 3, equal unlabored respirations, skin warm/dry/pink. pt appears to be sleeping at this time. 09:00 Reassessment: No changes from previously documented assessment. tw2 10:00 Reassessment: No changes from previously documented assessment. tw2 11:00 Reassessment: No changes from previously documented assessment. tw2 12:00 Reassessment: No changes from previously documented assessment. pt eating lunch at this tw2 time. 13:00 Reassessment: No changes from previously documented assessment. tw2 13:51 Reassessment: Patient appears in no apparent distress at this time. pt sitting upright tw2 on phone at this time.NAD. 14:00 Reassessment: Patient appears in no apparent distress at this time. No changes from mg2 previously documented assessment. Patient and/or family updated on plan of care and expected duration. Pain level reassessed. Patient is alert, oriented x 3, equal unlabored respirations, skin warm/dry/pink. 15:00 Reassessment: Patient appears in no apparent distress at this time. Patient and/or mg2 family updated on plan of care and expected duration. Pain level reassessed. Patient is alert, oriented x 3, equal unlabored respirations, skin warm/dry/pink. pt sitting upright in bed at this time, nad, looking at phone, significant other remains at bedside, pt requesting soup at this time, cafeteria called. 16:00 Reassessment: Patient appears in no apparent distress at this time. No changes from tw2 previously documented assessment. Patient and/or family updated on plan of care and expected duration. Pain level reassessed. Patient is alert, oriented x 3, equal unlabored respirations, skin warm/dry/pink. Reassessment: pt is awake at this time. 17:00 Reassessment: Patient appears in no apparent distress at this time. No changes from tw2 previously documented assessment. Patient and/or family updated on plan of care and expected duration. Pain level reassessed. Patient is alert, oriented x 3, equal unlabored respirations, skin warm/dry/pink. pt is awake at this time. 19:00 Reassessment: Patient appears in no apparent distress at this time. Patient and/or jb4 family updated on plan of care and expected duration. Pain level reassessed. Patient is alert, oriented x 3, equal unlabored respirations, skin warm/dry/pink. 20:00 Reassessment: Patient appears in no apparent distress at this time. Patient and/or jb4 family updated on plan of care and expected duration. Pain level reassessed. Patient is alert, oriented x 3, equal unlabored respirations, skin warm/dry/pink. Guest at the bedside. 20:30 Musculoskeletal: Capillary refill < 3 seconds, Range of motion: intact in all sr6 extremities. 21:32 General: Appears in no apparent distress. comfortable, well nourished, Behavior is sr6 calm, cooperative, appropriate for age. Pain: Denies pain. Neuro: Level of Consciousness is awake, alert, obeys commands. Cardiovascular: Capillary refill < 3 seconds. Respiratory: Airway is patent Respiratory effort is even, unlabored. GI: No signs and/or symptoms were reported involving the gastrointestinal system. : No signs and/or symptoms were reported regarding the genitourinary system. EENT: No signs and/or symptoms were reported regarding the EENT system. Derm: No signs and/or symptoms reported regarding the dermatologic system. 22:30 Reassessment: Patient appears in no apparent distress at this time. Patient and/or jb4 family updated on plan of care and expected duration. Pain level reassessed. Patient is alert, oriented x 3, equal unlabored respirations, skin warm/dry/pink. 23:30 Reassessment: Patient appears in no apparent distress at this time. Patient and/or jb4 family updated on plan of care and expected duration. Pain level reassessed. Patient is alert, oriented x 3, equal unlabored respirations, skin warm/dry/pink. 11/18 00:30 Reassessment: Patient appears in no apparent distress at this time. Patient and/or jb4 family updated on plan of care and expected duration. Pain level reassessed. Patient is alert, oriented x 3, equal unlabored respirations, skin warm/dry/pink. 01:30 Reassessment: Patient appears in no apparent distress at this time. Patient and/or jb4 family updated on plan of care and expected duration. Pain level reassessed. Patient is alert, oriented x 3, equal unlabored respirations, skin warm/dry/pink. 02:30 Reassessment: Patient appears in no apparent distress at this time. No changes from jb4 previously documented assessment. Patient and/or family updated on plan of care and expected duration. Pain level reassessed. 03:30 Reassessment: Patient appears in no apparent distress at this time. Patient and/or jb4 family updated on plan of care and expected duration. Pain level reassessed. Pt is resting with eyes closed, respirations even and unlabored. friend at the bedside. 04:30 Reassessment: Patient appears in no apparent distress at this time. No changes from jb4 previously documented assessment. Patient and/or family updated on plan of care and expected duration. Pain level reassessed. 05:30 Reassessment: Patient appears in no apparent distress at this time. No changes from jb4 previously documented assessment. Patient and/or family updated on plan of care and expected duration. Pain level reassessed. 07:15 Reassessment: Patient appears in no apparent distress at this time. Patient and/or ph family updated on plan of care and expected duration. Pain level reassessed. Pt asleep w/ even and unlabored respirations, awakens easily, SO at bedside,a waiting acceptance at psychiatric facility. 08:30 Reassessment: Patient appears in no apparent distress at this time. Patient and/or ph family updated on plan of care and expected duration. Pain level reassessed. Patient is alert, oriented x 3, equal unlabored respirations, skin warm/dry/pink. ERP at bedside to speak w/ pt, pt denies SI at this time, states, " I have not felt suicidal in 2 days but I still want to get help." [facility] to [facility] re-evaluate pt, sitter remains at bedside. 10:00 Reassessment: Patient appears in no apparent distress at this time. Patient and/or ph family updated on plan of care and expected duration. Pain level reassessed. Patient is alert, oriented x 3, equal unlabored respirations, skin warm/dry/pink. Pt continues to deny SI or HI, agrees to follow up / [facility] for outpatient therapy, sitter no longer required, pt awaiting D/C. Psych: 11/15 09:30 Subjective: Patient's mood is sad, Delusions are denied, Hallucinations are denied hb Having thoughts of suicide. Plan for suicide is cut throat with knife. Objective: Patient is cooperative, Speech is soft, Affect is flat. Interventions: Removed personal items and placed in bag. Suicide Risk Assessment: Sad Person Scale: Sex of patient: Female: Score 0 points. Age of patient: Score 1 point if patient 15-34. Depression: Score 1 point if signs of depression are present. Previous Attempt: Score 1 point if patient has previously attempted suicide. Substance Abuse: Score 0 point if patient does not abuse alcohol or drugs. Rational Thinking: Score 0 point if patient has rational thinking. Social Support: Score 0 if social support is present/available. Organized Plan: Score 1 point if patient had a plan in place. Relationship: Score 0 point if patient has a spouse or domestic partner. Chronic Sickness: Score 0 point if patient does not have a chronic illness, debilitating, or severe disorder. TOTAL POINTS: If total points are 3-4, proposed clinical action is close follow-up/consider hospitalization. Pt denies substance abuse. Commitment: Patient will be a voluntary commitment. 15:30 Safety Checks: Personal items have been removed. Door is open. Visitors are present. dj Patient is sleeping; a family member is sitting in the chair.Meal tray is in the bedside table. 15:45 Safety Checks: Personal items have been removed. Door is open. No visitors are present dj at this time. Pt resting in bed. 16:00 Safety Checks: Personal items have been removed. Door is open. No visitors are present dj at this time. Pt is resting in bed comfortfully;No furthur need at this time; Vital signs done. 16:30 Safety Checks: Personal items have been removed. Door is open. Visitors are present. No dj visitors are present at this time. Pt is sitting up in bed and eating dinner family brought from outside; family member is at bedside. 17:00 Safety Checks: Personal items have been removed. Door is open. Visitors are present. Pt dj is sitting up in bed and using the cell phone; family member is at bedside. 17:15 Safety Checks: Personal items have not been removed. Door is open. Visitors are dj present. Pt is resting in bed with eyes closed; Family member is at bedside. 17:30 Safety Checks: Personal items have been removed. Door is open. Visitors are present. Pt dj is resting in bed; family member is at bedside. 17:45 Safety Checks: Personal items have been removed. Door is open. Visitors are present. Pt dj is resting in bed and talking to the family member. 18:00 Safety Checks: Personal items have been removed. Door is open. No visitors are present dj at this time. Pt is resting in bed; family member left the room. 18:15 Safety Checks: Personal items have been removed. Door is open. No visitors are present dj at this time. Pt used the restroom and back to the bed. 18:30 Safety Checks: Personal items have been removed. Door is open. No visitors are present dj at this time. Pt is resting in bed; no further need at this time. 18:45 Safety Checks: Personal items have been removed. Door is open. No visitors are present dj at this time. Pt resting in bed calmly. Vital Signs: 11/14 22:24 BP 121 / 76; Pulse 102; Resp 18; Temp 98.2; Pulse Ox 96% on R/A; Weight 78.93 kg; ed1 Height 5 ft. 2 in. (157.48 cm); Pain 7/10; 11/15 03:09 BP 106 / 81; Pulse 66; Resp 16; Pulse Ox 98% on R/A; mt 06:26 BP 102 / 68; Pulse 74; Resp 16; Pulse Ox 99% on R/A; mt 08:57 BP 106 / 68; Pulse 67; Resp 15; Temp 98.2(O); Pulse Ox 99% on R/A; Pain 0/10; hb 16:00 BP 105 / 73; Pulse 73; Resp 18; Temp 98.6; Pulse Ox 98% ; Pain 0/10; dj 22:57 BP 105 / 81; Pulse 81; Resp 16; Temp 98.6(O); Pulse Ox 100% on R/A; ag4 11/16 07:31 BP 104 / 74; Pulse 72; Resp 18; Temp 97.4(O); Pulse Ox 99% on R/A; mh5 11:23 BP 99 / 61; Pulse 71; Resp 16; Temp 98.2(O); Pulse Ox 99% on R/A; mh5 15:33 BP 109 / 71; Pulse 75; Resp 16; Temp 98.7(O); Pulse Ox 99% on R/A; mh5 19:00 BP 108 / 72; Pulse 84; Resp 18; Temp 98.5; Pulse Ox 92% on R/A; kj1 11/17 00:09 BP 109 / 80; Pulse 89; Resp 18; Temp 98.5; Pulse Ox 100% on R/A; tr4 06:32 BP 103 / 69; Pulse 81; Resp 14; Temp 97.5; Pulse Ox 99% on R/A; rr5 10:42 BP 99 / 68; Pulse 78; Resp 15; Temp 97.8(O); Pulse Ox 99% on R/A; mh5 15:00 BP 106 / 77; Pulse 86; Resp 16; Temp 98.2(O); Pulse Ox 99% on R/A; mh5 17:32 BP 102 / 78; Pulse 78; Resp 16; Temp 98.0(O); Pulse Ox 98% on R/A; mh5 21:30 BP 116 / 75; Pulse 75; Resp 18; Temp 98.6; Pulse Ox 97% ; Pain 0/10; sr6 11/18 01:00 BP 108 / 69; Pulse 74; Resp 18; Temp 98.3; Pulse Ox 97% ; Pain 0/10; sr6 06:00 BP 100 / 74; Pulse 65; Resp 17; Temp 97.9; Pulse Ox 98% ; Pain 0/10; sr6 10:30 BP 107 / 72; Pulse 71; Resp 16; Temp 97.8; Pulse Ox 100% on R/A; ph 11/14 22:24 Body Mass Index 31.82 (78.93 kg, 157.48 cm) ed1 ED Course: 11/14 22:18 Patient arrived in ED. es 22:24 Triage completed. ed1 22:24 Arm band placed on right wrist. Patient placed in an exam room. ed1 22:30 Safety checks: Items removed: yes. Door open/sign placed on door: yes. Family/friend mt present: yes. Sitter present: Yes. 22:31 Swathi Lay, RN is Primary Nurse. ak1 22:31 Montana Jordan MD is Attending Physician. [facility] 22:31 Patient has correct armband on for positive identification. Placed in gown. Bed in low ak1 position. Call light in reach. Side rails up X 1. Adult w/ patient. sitter at bedside, pt belongings set to security. pt has been seen in ER for same s/s this week. 22:45 Safety checks: Items removed: yes. Door open/sign placed on door: yes. Family/friend mt present: yes. Sitter present: Yes. 23:00 Safety checks: Items removed: yes. Door open/sign placed on door: yes. Family/friend mt present: yes. Sitter present: Yes. 23:05 Inserted saline lock: 20 gauge in left antecubital area, using aseptic technique. Blood mt collected. 23:06 Urine collected: clean catch specimen, cloudy, blood tinged, EKG done, by ED staff, mt reviewed by Montana Jordan MD. 23:08 No provider procedures requiring assistance completed. ak1 23:15 Safety checks: Items removed: yes. Door open/sign placed on door: yes. Family/friend mt present: yes. Sitter present: Yes. 23:30 Safety checks: Items removed: yes. Door open/sign placed on door: yes. Family/friend mt present: yes. Sitter present: Yes. 23:45 Safety checks: Items removed: yes. Door open/sign placed on door: yes. Family/friend mt present: yes. Sitter present: Yes. 05/10 00:00 Safety checks: Items removed: yes. Door open/sign placed on door: yes. Family/friend mt present: yes. Sitter present: Yes. 00:15 Safety checks: Items removed: yes. Door open/sign placed on door: yes. Family/friend mt present: yes. Sitter present: Yes. 00:30 Safety checks: Items removed: yes. Door open/sign placed on door: yes. Family/friend mt present: yes. Sitter present: Yes. 00:45 Safety checks: Items removed: yes. Door open/sign placed on door: yes. Family/friend mt present: yes. Sitter present: Yes. 01:00 Safety checks: Items removed: yes. Door open/sign placed on door: yes. Family/friend mt present: yes. Sitter present: Yes. 01:15 Safety checks: Items removed: yes. Door open/sign placed on door: yes. Family/friend mt present: yes. Sitter present: Yes. 01:30 Safety checks: Items removed: yes. Door open/sign placed on door: yes. Family/friend mt present: yes. Sitter present: Yes. 01:45 Safety checks: Items removed: yes. Door open/sign placed on door: yes. Family/friend mt present: yes. Sitter present: Yes. 02:00 Safety checks: Items removed: yes. Door open/sign placed on door: yes. Family/friend mt present: yes. Sitter present: Yes. 02:15 Safety checks: Items removed: yes. Door open/sign placed on door: yes. Family/friend mt present: yes. Sitter present: Yes. 02:30 Safety checks: Items removed: yes. Door open/sign placed on door: yes. Family/friend mt present: yes. Sitter present: Yes. 02:45 Safety checks: Items removed: yes. Door open/sign placed on door: yes. Family/friend mt present: yes. Sitter present: Yes. 03:00 Safety checks: Items removed: yes. Door open/sign placed on door: yes. Family/friend mt present: yes. Sitter present: Yes. 03:15 Safety checks: Items removed: yes. Door open/sign placed on door: yes. Family/friend mt present: yes. Sitter present: Yes. 03:30 Safety checks: Items removed: yes. Door open/sign placed on door: yes. Family/friend mt present: yes. Sitter present: Yes. 03:45 Safety checks: Items removed: yes. Door open/sign placed on door: yes. Family/friend mt present: yes. Sitter present: Yes. 04:00 Safety checks: Items removed: yes. Door open/sign placed on door: yes. Family/friend mt present: yes. Sitter present: Yes. 04:15 Safety checks: Items removed: yes. Door open/sign placed on door: yes. Family/friend mt present: yes. Sitter present: Yes. 04:30 Safety checks: Items removed: yes. Door open/sign placed on door: yes. Family/friend mt present: yes. Sitter present: Yes. 04:45 Safety checks: Items removed: yes. Door open/sign placed on door: yes. Family/friend mt present: yes. Sitter present: Yes. 05:00 Safety checks: Items removed: yes. Door open/sign placed on door: yes. Family/friend mt present: yes. Sitter present: Yes. 05:15 Safety checks: Items removed: yes. Door open/sign placed on door: yes. Family/friend mt present: yes. Sitter present: Yes. 05:30 Safety checks: Items removed: yes. Door open/sign placed on door: yes. Family/friend mt present: yes. Sitter present: Yes. 05:45 Safety checks: Items removed: yes. Door open/sign placed on door: yes. Family/friend mt present: yes. Sitter present: Yes. 06:00 Safety checks: Items removed: yes. Door open/sign placed on door: yes. Family/friend mt present: yes. Sitter present: Yes. 06:15 Safety checks: Items removed: yes. Door open/sign placed on door: yes. Family/friend mt present: yes. Sitter present: Yes. 06:30 Safety checks: Items removed: yes. Door open/sign placed on door: yes. Family/friend mt present: yes. Sitter present: Yes. 06:45 Safety checks: Items removed: yes. Door open/sign placed on door: yes. Family/friend mt present: yes. Sitter present: Yes. 07:00 Safety checks: Items removed: yes. Door open/sign placed on door: yes. Family/friend ms present: yes. Family/friends encouraged to stay with patient. Sitter present: Yes. 07:15 Safety checks: Items removed: yes. Door open/sign placed on door: yes. Family/friend ms present: yes. Family/friends encouraged to stay with patient. Sitter present: Yes. 07:30 Safety checks: Items removed: yes. Door open/sign placed on door: yes. Family/friend ms present: yes. Family/friends encouraged to stay with patient. Sitter present: Yes. 07:45 Safety checks: Items removed: yes. Door open/sign placed on door: yes. Family/friend ms present: yes. Family/friends encouraged to stay with patient. Sitter present: Yes. 08:00 Safety checks: Items removed: yes. Door open/sign placed on door: yes. Family/friend ms present: yes. Family/friends encouraged to stay with patient. Sitter present: Yes. 08:15 Safety checks: Items removed: yes. Door open/sign placed on door: yes. Family/friend ms present: yes. Family/friends encouraged to stay with patient. Sitter present: Yes. 08:30 Safety checks: Items removed: yes. Door open/sign placed on door: yes. Family/friend ms present: yes. Family/friends encouraged to stay with patient. Sitter present: Yes. 08:45 Safety checks: Items removed: yes. Door open/sign placed on door: yes. Family/friend ms present: yes. Family/friends encouraged to stay with patient. Sitter present: Yes. 09:00 Safety checks: Items removed: yes. Door open/sign placed on door: yes. Family/friend ms present: yes. Family/friends encouraged to stay with patient. Sitter present: Yes. 09:15 Safety checks: Items removed: yes. Door open/sign placed on door: yes. Family/friend ms present: yes. Family/friends encouraged to stay with patient. Sitter present: Yes. 09:30 Safety checks: Items removed: yes. Door open/sign placed on door: yes. Family/friend ms present: yes. Family/friends encouraged to stay with patient. 09:45 Safety checks: Items removed: yes. Door open/sign placed on door: yes. Family/friend ms present: yes. Family/friends encouraged to stay with patient. Sitter present: Yes. 10:00 Safety checks: Items removed: yes. Door open/sign placed on door: yes. Family/friend ms present: yes. Family/friends encouraged to stay with patient. Sitter present: Yes. 10:15 Safety checks: Items removed: yes. Door open/sign placed on door: yes. Family/friend ms present: yes. Family/friends encouraged to stay with patient. Sitter present: Yes. 10:30 Safety checks: Items removed: yes. Door open/sign placed on door: yes. Family/friend ms present: yes. Family/friends encouraged to stay with patient. Sitter present:. 10:45 Safety checks: Items removed: yes. Door open/sign placed on door: yes. Family/friend ms present: yes. Family/friends encouraged to stay with patient. Sitter present: Yes. 11:00 Safety checks: Items removed: yes. Door open/sign placed on door: yes. Family/friend ms present: yes. Family/friends encouraged to stay with patient. Sitter present: Yes. 11:15 Safety checks: Items removed: yes. Door open/sign placed on door: yes. Family/friend ms present: yes. Family/friends encouraged to stay with patient. Sitter present: Yes. Safety checks:. 11:30 Safety checks: Items removed: yes. Door open/sign placed on door: yes. Family/friend ms present: yes. Family/friends encouraged to stay with patient. Sitter present: Yes. 11:45 Safety checks: Items removed: yes. Door open/sign placed on door: yes. Family/friend ms present: no. Sitter present: Yes. 12:00 Safety checks: Items removed: yes. Door open/sign placed on door: yes. Family/friend ms present: yes. Family/friends encouraged to stay with patient. Sitter present: Yes. 12:15 Safety checks: Items removed: yes. Door open/sign placed on door: yes. Family/friend ms present: yes. Family/friends encouraged to stay with patient. Sitter present: Yes. 12:30 Safety checks: Items removed: yes. Door open/sign placed on door: yes. Family/friend ms present: yes. Family/friends encouraged to stay with patient. Sitter present: Yes. 12:45 Safety checks: Items removed: yes. Door open/sign placed on door: yes. Family/friend ms present: yes. Family/friends encouraged to stay with patient. Sitter present: Yes. 13:00 Safety checks: Items removed: yes. Door open/sign placed on door: yes. Family/friend ms present: yes. Family/friends encouraged to stay with patient. Sitter present:. 13:15 Safety checks: Items removed: yes. Door open/sign placed on door: yes. Family/friend ms present: yes. Family/friends encouraged to stay with patient. Sitter present: Yes. 13:30 Safety checks: Items removed: yes. Door open/sign placed on door: yes. Family/friend ms present: yes. Family/friends encouraged to stay with patient. Sitter present: Yes. 13:45 Safety checks: Items removed: yes. Door open/sign placed on door: yes. Family/friend ms present: yes. Family/friends encouraged to stay with patient. Sitter present: Yes. 14:00 Safety checks: Items removed: yes. Door open/sign placed on door: yes. Family/friend ms present: yes. Family/friends encouraged to stay with patient. Sitter present: Yes. 14:05 faxed patients records to the following facilities in the attempt to initiate a eb transfer; [facility], [facility], [facility], [facility], [facility] , [facility], [facility] , [facility], [facility], [facility] and [facility]. 14:10 [facility] called to decline the patient at this time they have no beds available at eb this time. 14:15 Safety checks: Items removed: yes. Door open/sign placed on door: yes. Family/friend ms present: yes. Family/friends encouraged to stay with patient. Sitter present: Yes. 14:30 Safety checks: Items removed: yes. Door open/sign placed on door: yes. Family/friend ms present: yes. Family/friends encouraged to stay with patient. Sitter present: Yes. 14:45 Safety checks: Items removed: yes. Door open/sign placed on door: yes. Family/friend ms present: yes. Family/friends encouraged to stay with patient. Sitter present: Yes. 15:00 Safety checks: Items removed: yes. Door open/sign placed on door: yes. Family/friend ms present: yes. Family/friends encouraged to stay with patient. Sitter present: Yes. 15:15 Safety checks: Items removed: yes. Door open/sign placed on door: yes. Family/friend ms present: yes. Family/friends encouraged to stay with patient. Sitter present: Yes. 17:10 Attending Physician role handed off by Montana Jordan MD kdr 17:10 Erick Benjamni MD is Attending Physician. kdr 19:00 Safety checks: Items removed: yes. Door open/sign placed on door: yes. Family/friend ag4 present: yes. Sitter present: Yes. 19:15 Safety checks: Items removed: yes. Door open/sign placed on door: yes. Family/friend ag4 present: no. Sitter present: Yes. 19:30 Safety checks: Items removed: yes. Door open/sign placed on door: yes. Family/friend ss5 present: no. Sitter present: Yes. 19:45 Safety checks: Items removed: yes. Door open/sign placed on door: yes. Family/friend ss5 present: no. Sitter present: Yes. 20:00 Safety checks: Items removed: yes. no. Reason for not removing items: Door open/sign ss5 placed on door: yes. Sitter present: Yes. 20:15 Safety checks: Items removed: yes. Door open/sign placed on door: yes. Family/friend ag4 present: yes. Sitter present: Yes. 20:30 Safety checks: Items removed: no. Reason for not removing items: Door open/sign placed ss5 on door: yes. Family/friend present: yes. Sitter present: Yes. 20:45 Safety checks: Door open/sign placed on door: yes. Family/friend present: yes. Sitter ss5 present: Yes. 21:00 Safety checks: Door open/sign placed on door: no. Other: agent from [facility] Family/friend present: yes. 21:15 Safety checks: Door open/sign placed on door: yes. Family/friend present: yes. Sitter ss5 present: Yes. Other: Pt.asleep. Safety checks: Items removed: yes. Door open/sign placed on door: no. 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 21:30 Safety checks: Door open/sign placed on door: yes. no. Family/friend present: yes. ss5 Other: agent from [facility] present Sitter present: Yes. 21:45 Safety checks: Door open/sign placed on door: yes. Family/friend present: yes. Sitter ss5 present: Yes. 22:00 Safety checks: Door open/sign placed on door: yes. Family/friend present: yes. Sitter ss5 present: Yes. 22:15 Safety checks: Door open/sign placed on door: yes. Family/friend present: yes. Sitter ss5 present: Yes. 22:30 Safety checks: Items removed: yes. Door open/sign placed on door: yes. Family/friend ag4 present: yes. Sitter present: Yes. 22:45 Safety checks: Items removed: yes. Door open/sign placed on door: yes. Family/friend ss5 present: yes. Sitter present: Yes. 22:51 Cameron Rodriguez, DEANGELO is Primary Nurse. [email or web address] 23:00 Safety checks: Door open/sign placed on door: yes. Other: talking on phone ss5 Family/friend present: yes. Sitter present: Yes. 23:10 Safety checks: Door open/sign placed on door: yes. Family/friend present: yes. Other: ss5 up use rest room to urinate. 23:15 Safety checks: Door open/sign placed on door: yes. Family/friend present: yes. Sitter ss5 present: Yes. 23:30 Safety checks: Door open/sign placed on door: yes. Family/friend present: yes. Sitter ss5 present: Yes. 23:45 Safety checks: Door open/sign placed on door: yes. Family/friend present: yes. Sitter ss5 present: Yes. Other: pt, awake. 11/16 00:00 Safety checks: Door open/sign placed on door: yes. Family/friend present: yes. Sitter ss5 present: Yes. 00:15 Safety checks: Items removed: yes. Door open/sign placed on door: yes. Family/friend ss5 present: no. Sitter present: Yes. 00:30 Safety checks: Door open/sign placed on door: yes. Family/friend present: yes. Sitter ss5 present: Yes. 00:45 Safety checks: Door open/sign placed on door: yes. Family/friend present: yes. Sitter ss5 present: Yes. 01:00 Safety checks: Door open/sign placed on door: yes. Family/friend present: yes. Sitter ss5 present: Yes. blankets offered. 01:23 Primary Nurse role handed off by Cameron Rodriguez, RN ed1 01:23 Tahmina Cee RN is Primary Nurse. ed1 01:30 Safety checks: Door open/sign placed on door: yes. Family/friend present: yes. Sitter ss5 present: Yes. Other: Pt.awake. 01:45 Safety checks: Door open/sign placed on door: yes. Family/friend present: yes. Sitter ss5 present: Yes. Other: warm blanket given. 02:00 Safety checks: Door open/sign placed on door: yes. Family/friend present: no. Sitter ss5 present: Yes. Other: walking in hallway. 02:00 Safety checks: Door open/sign placed on door: yes. Family/friend present: yes. Sitter ss5 present: Yes. 02:00 IV discontinued, intact, bleeding controlled, No redness/swelling at site. Pressure ed1 dressing applied. 02:15 Safety Checks: Personal items have been removed. The door is open or patient has been cr4 placed in a hallway bed/chair. A family member and/or friend is present and encouraged to stay. Sitter present at this time. 02:30 Safety Checks: Personal items have been removed. The door is open or patient has been cr4 placed in a hallway bed/chair. A family member and/or friend is present and encouraged to stay. Sitter present at this time. 02:45 Safety Checks: Personal items have been removed. The door is open or patient has been cr4 placed in a hallway bed/chair. A family member and/or friend is present and encouraged to stay. Sitter present at this time. 03:00 Safety checks: Door open/sign placed on door: yes. Family/friend present: yes. Sitter ss5 present: Yes. 03:15 Safety checks: Items removed: yes. Door open/sign placed on door: yes. Family/friend ss5 present: yes. Sitter present: Yes. 03:30 Safety checks: Door open/sign placed on door: yes. Family/friend present: yes. Sitter ss5 present: Yes. Other: Pt.sleeping. Safety checks: Door open/sign placed on door:. 03:45 Safety checks: Door open/sign placed on door: yes. Family/friend present: yes. Sitter ss5 present: Yes. Other: Pt. Sleeping. 04:00 Safety checks: Door open/sign placed on door: yes. Family/friend present: yes. Sitter ss5 present: Yes. Other: Pt. asleep. 04:15 Safety checks: Door open/sign placed on door: yes. Family/friend present: yes. Sitter ss5 present: Yes. Other: pt. asleep. 04:30 Safety checks: Door open/sign placed on door: yes. Family/friend present: yes. Sitter ss5 present: Yes. Other: Pt.asleep. 04:45 Safety checks: Door open/sign placed on door: yes. Family/friend present: yes. Sitter ss5 present: Yes. Other: Pt.asleep. 05:00 Safety checks: Door open/sign placed on door: yes. Family/friend present: yes. Sitter ss5 present: Yes. Other: Pt.asleep. 05:15 Safety checks: Door open/sign placed on door: yes. Family/friend present: yes. Sitter ss5 present: Yes. Other: Pt.asleep. 05:30 Safety checks: Door open/sign placed on door: yes. Family/friend present: yes. Sitter ss5 present: Yes. Other: pt.asleep. 05:45 Safety checks: Door open/sign placed on door: yes. Family/friend present: yes. Sitter ss5 present: Yes. Other: Pt.asleep. 06:00 Safety checks: Door open/sign placed on door: yes. Family/friend present: Sitter ss5 present: Yes. Other: Pt. asleep. 06:15 Safety checks: Door open/sign placed on door: yes. Family/friend present: yes. Sitter ss5 present: Yes. Other: Pt.asleep. 06:30 Safety checks: Door open/sign placed on door: yes. Family/friend present: yes. Sitter ss5 present: Yes. 06:45 Safety checks: Door open/sign placed on door: yes. Family/friend present: yes. Sitter ss5 present: Yes. Other: Pt.asleep. 06:58 Primary Nurse role handed off by Tahmina Cee RN ed1 07:00 Safety checks: Door open/sign placed on door: yes. Family/friend present: yes. Sitter ss5 present: Yes. Other: ptasleep. 07:15 Safety checks: Items removed: yes. Door open/sign placed on door: yes. Family/friend mh5 present: yes. Family/friends encouraged to stay with patient. Sitter present: Yes. Other: PATIENT ASLEEP . 07:30 Safety checks: Items removed: yes. Door open/sign placed on door: yes. Family/friend mh5 present: yes. Sitter present: Yes. 07:43 Attending Physician role handed off by Erick Benjamin MD rn 07:43 Chintan Snow MD is Attending Physician. rn 07:45 Safety checks: Items removed: yes. Door open/sign placed on door: yes. Family/friend mh5 present: yes. Family/friends encouraged to stay with patient. Sitter present: Yes. 08:00 Safety checks: Items removed: yes. Door open/sign placed on door: yes. Family/friend mh5 present: yes. Sitter present: Yes. Other: PATIENT ASLEEP. 08:15 Safety checks: Items removed: yes. Door open/sign placed on door: yes. Family/friend mh5 present: yes. Family/friends encouraged to stay with patient. Sitter present: Yes. Other: PATIENT ASLEEP. 08:25 Diet: Patient given a regular meal tray. mh5 08:30 Safety checks: Items removed: yes. Door open/sign placed on door: yes. Family/friend mh5 present: yes. Family/friends encouraged to stay with patient. Sitter present: Yes. Other: PATIENT ASLEEP. 08:45 Safety checks: Items removed: yes. Door open/sign placed on door: yes. Family/friend mh5 present: yes. Family/friends encouraged to stay with patient. Sitter present: Yes. Other: PATIENT ASLEEP. 09:00 Safety checks: Items removed: yes. Door open/sign placed on door: yes. Family/friend mh5 present: yes. Family/friends encouraged to stay with patient. Sitter present: Yes. Other: PATIENT ASLEEP. 09:04 Thu Boykin, DEANGELO is Primary Nurse. tw2 09:15 Safety checks: Items removed: yes. Door open/sign placed on door: yes. Family/friend mh5 present: yes. Family/friends encouraged to stay with patient. Sitter present: Yes. Other: PATIENT ASLEEP. 09:30 Safety checks: Items removed: yes. Door open/sign placed on door: yes. Family/friend mh5 present: yes. Family/friends encouraged to stay with patient. Sitter present: Yes. Other: PATIENT ASLEEP. Safety checks: Items removed:. 09:45 Safety checks: Items removed: yes. Door open/sign placed on door: yes. Family/friend mh5 present: yes. Family/friends encouraged to stay with patient. Sitter present: Yes. Other: patient asleep. 10:00 Safety checks: Items removed: yes. Door open/sign placed on door: yes. Family/friend mh5 present: yes. Family/friends encouraged to stay with patient. Sitter present: Other: PATIENT ASLEEP. 10:15 Safety checks: Items removed: yes. Door open/sign placed on door: yes. Family/friend mh5 present: yes. Family/friends encouraged to stay with patient. Sitter present: Yes. Other: PATIENT ASLEEP. 10:30 Safety checks: Items removed: yes. Door open/sign placed on door: yes. Family/friend mh5 present: yes. Family/friends encouraged to stay with patient. Sitter present: Yes. Other: PATIENT ASLEEP. 10:45 Safety checks: Items removed: yes. Door open/sign placed on door: yes. Family/friend mh5 present: yes. Family/friends encouraged to stay with patient. Sitter present: Yes. Other: PATIENT ASLEEP. 11:00 Safety checks: Items removed: yes. Door open/sign placed on door: yes. Family/friend mh5 present: yes. Sitter present: Yes. 11:15 Safety checks: Items removed: yes. Door open/sign placed on door: yes. Family/friend mh5 present: yes. Family/friends encouraged to stay with patient. Sitter present: Yes. Other: PATIENT ASLEEP. 11:30 Safety checks: Items removed: yes. Door open/sign placed on door: yes. Family/friend mh5 present: yes. Family/friends encouraged to stay with patient. Sitter present: Yes. 11:45 Safety Checks: Personal items have been removed. The door is open or patient has been em5 placed in a hallway bed/chair. A family member and/or friend is present and encouraged to stay. Sitter present at this time. 11:45 No apparent distress. Resting quietly. Appears to be sleeping. em5 12:00 No apparent distress. Resting quietly. Appears to be sleeping. Safety Checks: Personal em5 items have been removed. The door is open or patient has been placed in a hallway bed/chair. A family member and/or friend is present and encouraged to stay. Sitter present at this time. 12:15 Safety Checks: Personal items have been removed. The door is open or patient has been em5 placed in a hallway bed/chair. A family member and/or friend is present and encouraged to stay. Sitter present at this time. 12:30 No apparent distress. Resting quietly. Appears to be sleeping. Safety Checks: Personal em5 items have been removed. The door is open or patient has been placed in a hallway bed/chair. A family member and/or friend is present and encouraged to stay. Sitter present at this time. 12:45 Safety checks: Items removed: yes. Safety checks: Items removed: yes. Door open/sign kj1 placed on door: yes. Family/friend present: yes. Family/friends encouraged to stay with patient. Sitter present: Yes. 13:00 Safety checks: Items removed: yes. Door open/sign placed on door: yes. Family/friend kj1 present: yes. Family/friends encouraged to stay with patient. Sitter present: Yes. 13:15 Safety checks: Items removed: yes. Door open/sign placed on door: yes. Family/friend kj1 present: yes. Family/friends encouraged to stay with patient. Sitter present: Yes. 13:30 Safety checks: Items removed: yes. Door open/sign placed on door: yes. Family/friend kj1 present: yes. Family/friends encouraged to stay with patient. Sitter present: Yes. 13:45 Safety checks: Items removed: yes. Door open/sign placed on door: yes. Family/friend mh5 present: no. Sitter present: Yes. 14:00 Safety checks: Items removed: yes. Door open/sign placed on door: yes. Family/friend mh5 present: yes. Family/friends encouraged to stay with patient. Sitter present: Yes. 14:15 Safety checks: Items removed: yes. Door open/sign placed on door: yes. Family/friend mh5 present: yes. Family/friends encouraged to stay with patient. Sitter present: Yes. 14:30 Safety checks: Items removed: yes. Door open/sign placed on door: yes. Family/friend mh5 present: yes. Family/friends encouraged to stay with patient. Sitter present: Yes. 14:45 Safety checks: Items removed: yes. Door open/sign placed on door: yes. Family/friend mh5 present: yes. Family/friends encouraged to stay with patient. Sitter present: Yes. 15:00 Safety checks: Items removed: yes. Door open/sign placed on door: yes. Family/friend mh5 present: yes. Family/friends encouraged to stay with patient. Sitter present: Yes. 15:15 Safety checks: Items removed: yes. Door open/sign placed on door: yes. Family/friend mh5 present: yes. Family/friends encouraged to stay with patient. Sitter present: Yes. 15:30 Safety checks: Items removed: yes. Door open/sign placed on door: yes. Family/friend mh5 present: yes. Family/friends encouraged to stay with patient. Sitter present: Yes. 15:45 Safety checks: Items removed: yes. Door open/sign placed on door: yes. Family/friend mh5 present: yes. Family/friends encouraged to stay with patient. Sitter present: Yes. 16:00 Safety checks: Items removed: yes. Door open/sign placed on door: yes. Family/friend mh5 present: yes. Sitter present: Yes. 16:15 Safety checks: Items removed: yes. Door open/sign placed on door: yes. Family/friend mh5 present: yes. Family/friends encouraged to stay with patient. Sitter present: Yes. 16:30 Safety checks: Items removed: yes. Door open/sign placed on door: yes. Family/friend mh5 present: yes. Family/friends encouraged to stay with patient. Sitter present: Yes. 16:45 Safety checks: Items removed: yes. Door open/sign placed on door: yes. Family/friend mh5 present: yes. Family/friends encouraged to stay with patient. Sitter present: Yes. Other: PATIENT SLEEPING. 17:00 Safety checks: Items removed: yes. Door open/sign placed on door: yes. Family/friend mh5 present: yes. Family/friends encouraged to stay with patient. Sitter present: Yes. 17:15 Safety checks: Items removed: yes. Door open/sign placed on door: yes. Family/friend mh5 present: yes. Family/friends encouraged to stay with patient. Sitter present: Yes. 17:30 Safety checks: Items removed: yes. Door open/sign placed on door: yes. Family/friend mh5 present: yes. Family/friends encouraged to stay with patient. Sitter present: Yes. 17:45 Safety checks: Items removed: yes. Door open/sign placed on door: yes. Family/friend mh5 present: yes. Family/friends encouraged to stay with patient. Sitter present: Yes. 18:00 Safety checks: Items removed: yes. Door open/sign placed on door: yes. Family/friend mh5 present: yes. Family/friends encouraged to stay with patient. Sitter present: Yes. 18:15 Safety checks: Items removed: yes. Door open/sign placed on door: yes. Family/friend mh5 present: yes. Family/friends encouraged to stay with patient. Sitter present: Yes. 18:30 Safety checks: Items removed: yes. Door open/sign placed on door: yes. Family/friend mh5 present: yes. Family/friends encouraged to stay with patient. Sitter present: Yes. 18:44 Safety checks: Items removed: yes. Door open/sign placed on door: yes. Family/friend kj1 present: yes. Family/friends encouraged to stay with patient. Sitter present: Yes. 19:00 Safety Checks: Personal items have been removed. The door is open or patient has been rr5 placed in a hallway bed/chair. A family member and/or friend is present and encouraged to stay. Sitter present at this time. 19:00 Safety checks: Items removed: yes. Door open/sign placed on door: yes. Family/friend kj1 present: yes. Family/friends encouraged to stay with patient. Sitter present: Yes. 19:01 Report given to DEANGELO Bray. tw2 19:16 Safety checks: Items removed: yes. Door open/sign placed on door: yes. Family/friend tr4 present: yes. Family/friends encouraged to stay with patient. Sitter present: Yes. 19:30 Safety checks: Items removed: yes. Door open/sign placed on door: yes. Family/friend tr4 present: yes. Family/friends encouraged to stay with patient. Sitter present: Yes. 19:47 Safety checks: Items removed: yes. Door open/sign placed on door: yes. Family/friend tr4 present: yes. Family/friends encouraged to stay with patient. Sitter present: Yes. 20:00 Safety Checks: Personal items have been removed. The door is open or patient has been rr5 placed in a hallway bed/chair. A family member and/or friend is present and encouraged to stay. Sitter present at this time. 20:01 Safety checks: Items removed: yes. Door open/sign placed on door: yes. Family/friend tr4 present: yes. Family/friends encouraged to stay with patient. Sitter present: Yes. 20:17 Safety checks: Items removed: yes. Door open/sign placed on door: yes. Family/friend tr4 present: yes. Family/friends encouraged to stay with patient. Sitter present: Yes. 20:30 Safety checks: Items removed: yes. Door open/sign placed on door: yes. Family/friend tr4 present: yes. Family/friends encouraged to stay with patient. Sitter present: Yes. 20:44 Safety checks: Items removed: yes. Door open/sign placed on door: yes. Family/friend tr4 present: yes. Family/friends encouraged to stay with patient. Sitter present: Yes. 21:00 Safety Checks: Personal items have been removed. The door is open or patient has been rr5 placed in a hallway bed/chair. A family member and/or friend is present and encouraged to stay. Sitter present at this time. 21:00 Safety checks: Items removed: yes. Door open/sign placed on door: yes. Family/friend tr4 present: yes. Family/friends encouraged to stay with patient. Sitter present: Yes. 21:15 Safety checks: Items removed: yes. Door open/sign placed on door: yes. Family/friend tr4 present: yes. Family/friends encouraged to stay with patient. Sitter present: Yes. 21:29 Safety checks: Items removed: yes. Door open/sign placed on door: Patient placed in tr4 hallway bed. yes. Family/friend present: yes. Family/friends encouraged to stay with patient. Sitter present: Yes. 21:44 Safety checks: Items removed: yes. Door open/sign placed on door: yes. Family/friend tr4 present: yes. Family/friends encouraged to stay with patient. Sitter present: Yes. 21:59 Safety checks: Items removed: yes. Door open/sign placed on door: yes. Family/friend tr4 present: yes. Family/friends encouraged to stay with patient. Sitter present: Yes. 22:00 Safety Checks: Personal items have been removed. The door is open or patient has been rr5 placed in a hallway bed/chair. A family member and/or friend is present and encouraged to stay. Sitter present at this time. 22:15 Safety checks: Items removed: yes. Door open/sign placed on door: yes. Family/friend tr4 present: yes. Family/friends encouraged to stay with patient. Sitter present: Yes. 22:29 Safety checks: Items removed: yes. Door open/sign placed on door: yes. Family/friend tr4 present: yes. Family/friends encouraged to stay with patient. Sitter present: Yes. 23:00 Safety Checks: Personal items have been removed. The door is open or patient has been rr5 placed in a hallway bed/chair. A family member and/or friend is present and encouraged to stay. Sitter present at this time. 23:00 Safety checks: Items removed: yes. Door open/sign placed on door: yes. Family/friend tr4 present: yes. Family/friends encouraged to stay with patient. Sitter present: Yes. 23:14 Safety checks: Items removed: yes. Door open/sign placed on door: yes. Family/friend tr4 present: yes. Family/friends encouraged to stay with patient. Sitter present: Yes. 23:30 Safety checks: Items removed: yes. Door open/sign placed on door: yes. no. tr4 Family/friend present: yes. Family/friends encouraged to stay with patient. Sitter present: Yes. 23:44 Safety checks: Items removed: yes. Door open/sign placed on door: yes. Family/friend tr4 present: yes. Family/friends encouraged to stay with patient. Sitter present: Yes. 23:59 Safety checks: Items removed: yes. Door open/sign placed on door: yes. Family/friend tr4 present: yes. Family/friends encouraged to stay with patient. Sitter present: Yes. 11/17 00:00 Safety Checks: Personal items have been removed. The door is open or patient has been rr5 placed in a hallway bed/chair. A family member and/or friend is present and encouraged to stay. Sitter present at this time. 00:16 Safety checks: Items removed: yes. Door open/sign placed on door: yes. Family/friend kj1 present: yes. Family/friends encouraged to stay with patient. Sitter present: Yes. 00:31 Safety checks: Items removed: yes. Door open/sign placed on door: yes. Family/friend kj1 present: yes. Family/friends encouraged to stay with patient. Sitter present: Yes. 00:37 Oral care given. hair shampoo and gown changed. rr5 00:45 Safety checks: Items removed: yes. Door open/sign placed on door: yes. Family/friend tr4 present: yes. Family/friends encouraged to stay with patient. Sitter present: Yes. 00:58 Safety checks: Items removed: yes. Door open/sign placed on door: yes. Family/friend tr4 present: yes. Family/friends encouraged to stay with patient. no. Sitter present: Yes. 01:00 Safety Checks: Personal items have been removed. The door is open or patient has been rr5 placed in a hallway bed/chair. A family member and/or friend is present and encouraged to stay. Sitter present at this time. 01:15 Safety checks: Items removed: yes. Door open/sign placed on door: yes. Family/friend tr4 present: yes. Family/friends encouraged to stay with patient. Sitter present: Yes. 01:24 Attending Physician role handed off by Chintan Snow MD kdr 01:24 Erick Benjamin MD is Attending Physician. kdr 01:29 Safety checks: Items removed: yes. Door open/sign placed on door: yes. Family/friend tr4 present: yes. Family/friends encouraged to stay with patient. Sitter present: Yes. 01:47 Safety checks: Items removed: yes. Door open/sign placed on door: yes. Family/friend tr4 present: yes. Family/friends encouraged to stay with patient. Sitter present: Yes. 02:00 Safety Checks: Personal items have been removed. The door is open or patient has been rr5 placed in a hallway bed/chair. A family member and/or friend is present and encouraged to stay. Sitter present at this time. 02:05 Safety checks: Items removed: yes. Door open/sign placed on door: yes. Family/friend tr4 present: yes. Family/friends encouraged to stay with patient. Sitter present: Yes. 02:14 Primary Nurse role handed off by Thu Boykin RN ed1 02:15 No apparent distress. Resting quietly. Appears to be sleeping. Safety Checks: Personal jl3 items have been removed. The door is open or patient has been placed in a hallway bed/chair. A family member and/or friend is present and encouraged to stay. Sitter present at this time. 02:19 Mihir Reynolds RN is Primary Nurse. jl3 02:30 No apparent distress. Resting quietly. Appears to be sleeping. jl3 02:30 Safety Checks: Personal items have been removed. The door is open or patient has been jl3 placed in a hallway bed/chair. A family member and/or friend is present and encouraged to stay. Sitter present at this time. 02:45 No apparent distress. Resting quietly. Appears to be sleeping. Safety Checks: Personal jl3 items have been removed. The door is open or patient has been placed in a hallway bed/chair. A family member and/or friend is present and encouraged to stay. Sitter present at this time. 03:00 No apparent distress. Resting quietly. Appears to be sleeping. Safety Checks: Personal jl3 items have been removed. The door is open or patient has been placed in a hallway bed/chair. A family member and/or friend is present and encouraged to stay. Sitter present at this time. 03:15 No apparent distress. Resting quietly. Appears to be sleeping. Safety Checks: Personal jl3 items have been removed. The door is open or patient has been placed in a hallway bed/chair. A family member and/or friend is present and encouraged to stay. Sitter present at this time. 03:30 No apparent distress. Resting quietly. Appears to be sleeping. Safety Checks: Personal jl3 items have been removed. The door is open or patient has been placed in a hallway bed/chair. A family member and/or friend is present and encouraged to stay. Sitter present at this time. 03:45 Safety Checks: Personal items have been removed. The door is open or patient has been rr5 placed in a hallway bed/chair. A family member and/or friend is present and encouraged to stay. Sitter present at this time. 04:00 Safety Checks: Personal items have been removed. The door is open or patient has been rr5 placed in a hallway bed/chair. A family member and/or friend is present and encouraged to stay. Sitter present at this time. 04:15 Safety Checks: Personal items have been removed. The door is open or patient has been rr5 placed in a hallway bed/chair. A family member and/or friend is present and encouraged to stay. Sitter present at this time. 04:30 Safety Checks: Personal items have been removed. The door is open or patient has been rr5 placed in a hallway bed/chair. A family member and/or friend is present and encouraged to stay. Sitter present at this time. 04:45 Safety Checks: Personal items have been removed. The door is open or patient has been rr5 placed in a hallway bed/chair. A family member and/or friend is present and encouraged to stay. Sitter present at this time. 05:00 Safety Checks: Personal items have been removed. The door is open or patient has been rr5 placed in a hallway bed/chair. A family member and/or friend is present and encouraged to stay. Sitter present at this time. 05:15 Safety Checks: Personal items have been removed. The door is open or patient has been rr5 placed in a hallway bed/chair. A family member and/or friend is present and encouraged to stay. Sitter present at this time. 05:30 Safety Checks: Personal items have been removed. The door is open or patient has been rr5 placed in a hallway bed/chair. A family member and/or friend is present and encouraged to stay. Sitter present at this time. 05:45 Safety Checks: Personal items have been removed. The door is open or patient has been rr5 placed in a hallway bed/chair. A family member and/or friend is present and encouraged to stay. Sitter present at this time. 06:00 Safety Checks: Personal items have been removed. The door is open or patient has been rr5 placed in a hallway bed/chair. A family member and/or friend is present and encouraged to stay. Sitter present at this time. 06:15 Safety Checks: Personal items have been removed. The door is open or patient has been rr5 placed in a hallway bed/chair. A family member and/or friend is present and encouraged to stay. Sitter present at this time. 06:30 Safety Checks: Personal items have been removed. The door is open or patient has been rr5 placed in a hallway bed/chair. A family member and/or friend is present and encouraged to stay. Sitter present at this time. 06:45 Safety Checks: Personal items have been removed. The door is open or patient has been rr5 placed in a hallway bed/chair. A family member and/or friend is present and encouraged to stay. Sitter present at this time. 07:00 Safety Checks: Personal items have been removed. The door is open or patient has been rr5 placed in a hallway bed/chair. A family member and/or friend is present and encouraged to stay. Sitter present at this time. 07:00 Safety checks: Items removed: yes. Door open/sign placed on door: yes. Family/friend mh5 present: yes. Family/friends encouraged to stay with patient. Sitter present: Yes. 07:15 Safety checks: Items removed: yes. Door open/sign placed on door: yes. Family/friend mh5 present: yes. Sitter present: Yes. 07:30 Safety checks: Items removed: yes. Door open/sign placed on door: yes. Family/friend mh5 present: yes. Family/friends encouraged to stay with patient. Sitter present: Yes. 07:45 Safety checks: Items removed: yes. Door open/sign placed on door: yes. Family/friend mh5 present: yes. Family/friends encouraged to stay with patient. Sitter present: Yes. Other: PATIENT SLEEPING. 08:00 Safety checks: Items removed: yes. Door open/sign placed on door: yes. Family/friend mh5 present: yes. Family/friends encouraged to stay with patient. Sitter present: Yes. 08:09 Diet: Patient given a regular meal tray. mh5 08:15 Safety checks: Items removed: yes. Door open/sign placed on door: yes. Family/friend mh5 present: yes. Family/friends encouraged to stay with patient. Sitter present: Yes. 08:30 Safety checks: Items removed: yes. Door open/sign placed on door: yes. Family/friend mh5 present: yes. Family/friends encouraged to stay with patient. Sitter present: Yes. 08:45 Safety checks: Items removed: yes. Door open/sign placed on door: yes. Family/friend mh5 present: yes. Family/friends encouraged to stay with patient. Sitter present: Yes. Other: PATIENT STILL SLEEPING AND FAMILY MEMBER ALSO. 09:00 Safety checks: Items removed: yes. Door open/sign placed on door: yes. Family/friend mh5 present: yes. Family/friends encouraged to stay with patient. Sitter present: Yes. 09:15 Safety checks: Items removed: yes. Door open/sign placed on door: yes. Family/friend mh5 present: yes. Family/friends encouraged to stay with patient. Sitter present: Yes. Other: PATIENT SLEEPING. 09:30 Safety checks: Items removed: yes. Door open/sign placed on door: yes. Family/friend mh5 present: yes. Family/friends encouraged to stay with patient. Sitter present: Yes. Other: PATIENT SLEEPING. 09:45 Safety checks: Items removed: yes. Door open/sign placed on door: yes. Family/friend mh5 present: yes. Family/friends encouraged to stay with patient. Sitter present: Yes. Other: PATIENT SLEEPING. 10:00 Safety checks: Items removed: yes. Door open/sign placed on door: yes. Family/friend mh5 present: yes. Family/friends encouraged to stay with patient. Sitter present: Yes. Other: PATIENT SLEEPING. 10:15 Safety checks: Items removed: yes. Door open/sign placed on door: yes. Family/friend mh5 present: yes. Family/friends encouraged to stay with patient. Sitter present: Yes. Other: PATIENT SLEEPING. 10:30 Safety checks: Items removed: yes. Door open/sign placed on door: yes. Family/friend mh5 present: yes. Family/friends encouraged to stay with patient. Sitter present: Yes. 10:45 Safety checks: Items removed: yes. Door open/sign placed on door: yes. Family/friend mh5 present: yes. Family/friends encouraged to stay with patient. Sitter present: Yes. 11:00 Safety checks: Items removed: yes. Door open/sign placed on door: yes. Family/friend mh5 present: yes. Family/friends encouraged to stay with patient. Sitter present: Yes. 11:15 Safety checks: Items removed: yes. Door open/sign placed on door: yes. Family/friend mh5 present: yes. Family/friends encouraged to stay with patient. Sitter present: Yes. 11:30 Safety checks: Items removed: yes. Door open/sign placed on door: yes. Family/friend mh5 present: yes. Family/friends encouraged to stay with patient. Sitter present: Yes. Other: PATIENT SLEEPING. 11:45 Safety checks: Items removed: yes. Door open/sign placed on door: yes. Family/friend mh5 present: yes. Family/friends encouraged to stay with patient. Sitter present: Yes. 12:00 Safety checks: Items removed: yes. Door open/sign placed on door: yes. Family/friend mh5 present: yes. Family/friends encouraged to stay with patient. Sitter present: Yes. 12:30 Safety checks: Items removed: yes. Door open/sign placed on door: yes. Family/friend mh5 present: yes. Family/friends encouraged to stay with patient. Sitter present: Yes. Diet: Patient given a regular meal tray. 12:45 Safety checks: Items removed: yes. Door open/sign placed on door: yes. Family/friend mh5 present: yes. Family/friends encouraged to stay with patient. Sitter present: Yes. 13:00 Safety checks: Items removed: yes. Door open/sign placed on door: yes. Family/friend mh5 present: yes. Family/friends encouraged to stay with patient. Sitter present: Yes. 13:15 Safety checks: Items removed: yes. Door open/sign placed on door: yes. Family/friend mh5 present: yes. Family/friends encouraged to stay with patient. Sitter present: Yes. 13:30 Safety checks: Items removed: yes. Door open/sign placed on door: yes. Family/friend mh5 present: yes. Family/friends encouraged to stay with patient. Sitter present: Yes. 13:45 Safety checks: Items removed: yes. Door open/sign placed on door: yes. Family/friend mh5 present: yes. Family/friends encouraged to stay with patient. Sitter present: Yes. 14:00 Safety checks: Items removed: yes. Door open/sign placed on door: yes. Family/friend mh5 present: yes. Family/friends encouraged to stay with patient. Sitter present: Yes. 14:15 Safety checks: Items removed: yes. Door open/sign placed on door: yes. Family/friend mh5 present: yes. Family/friends encouraged to stay with patient. Sitter present: Yes. 14:30 Safety checks: Items removed: yes. Door open/sign placed on door: yes. Family/friend mh5 present: yes. Family/friends encouraged to stay with patient. Sitter present: Yes. 14:45 Safety checks: Items removed: yes. Door open/sign placed on door: yes. Family/friend mh5 present: yes. Family/friends encouraged to stay with patient. Sitter present: Yes. 15:00 Safety checks: Items removed: yes. Door open/sign placed on door: yes. Family/friend mh5 present: yes. Family/friends encouraged to stay with patient. Sitter present: Yes. 15:15 Safety checks: Items removed: yes. Door open/sign placed on door: yes. Family/friend mh5 present: yes. Family/friends encouraged to stay with patient. Sitter present: Yes. 15:30 Safety checks: Items removed: yes. Door open/sign placed on door: yes. Family/friend mh5 present: yes. Family/friends encouraged to stay with patient. Sitter present: Yes. 15:45 Safety checks: Items removed: yes. Door open/sign placed on door: yes. Family/friend mh5 present: yes. Family/friends encouraged to stay with patient. Sitter present: Yes. 16:00 Safety checks: Items removed: yes. Door open/sign placed on door: yes. Family/friend mh5 present: yes. Family/friends encouraged to stay with patient. Sitter present: Yes. 16:15 Safety checks: Items removed: yes. Door open/sign placed on door: yes. Family/friend mh5 present: no. Sitter present: Yes. 16:16 Diet: Patient given snack. mh5 16:30 Safety checks: Items removed: yes. Door open/sign placed on door: yes. Family/friend mh5 present: no. Sitter present: Yes. 16:45 Safety checks: Items removed: yes. Door open/sign placed on door: yes. Family/friend mh5 present: yes. Family/friends encouraged to stay with patient. Sitter present: Yes. 17:00 Safety checks: Items removed: yes. Door open/sign placed on door: yes. Family/friend mh5 present: yes. Family/friends encouraged to stay with patient. Sitter present: Yes. 17:15 Safety checks: Items removed: yes. Door open/sign placed on door: yes. Family/friend mh5 present: no. Sitter present: Yes. 17:23 Diet: Patient given a regular meal tray. mh5 17:30 Safety checks: Items removed: yes. Door open/sign placed on door: yes. Family/friend mh5 present: yes. Family/friends encouraged to stay with patient. Sitter present: Yes. 17:33 Report given to LVN. Jarrod tw2 17:45 Safety checks: Items removed: yes. Door open/sign placed on door: yes. Family/friend mh5 present: yes. Family/friends encouraged to stay with patient. Sitter present: Yes. 18:00 Safety checks: Items removed: yes. Door open/sign placed on door: yes. Family/friend mh5 present: yes. Family/friends encouraged to stay with patient. Sitter present: Yes. 18:15 Safety checks: Items removed: yes. Door open/sign placed on door: yes. Family/friend mh5 present: yes. Family/friends encouraged to stay with patient. Sitter present: Yes. 18:30 Safety checks: Items removed: yes. Door open/sign placed on door: yes. Family/friend mh5 present: yes. Family/friends encouraged to stay with patient. Sitter present: Yes. 18:45 Safety checks: Items removed: yes. Door open/sign placed on door: yes. Family/friend mh5 present: yes. Family/friends encouraged to stay with patient. Sitter present: Yes. 19:00 Safety Checks: Personal items have been removed. The door is open or patient has been sr6 placed in a hallway bed/chair. A family member and/or friend is present and encouraged to stay. Sitter present at this time. 19:15 Safety Checks: Personal items have been removed. The door is open or patient has been sr6 placed in a hallway bed/chair. A family member and/or friend is present and encouraged to stay. Sitter present at this time. 19:30 Safety Checks: Personal items have been removed. The door is open or patient has been sr6 placed in a hallway bed/chair. A family member and/or friend is present and encouraged to stay. Sitter present at this time. 19:45 Safety Checks: Personal items have been removed. The door is open or patient has been sr6 placed in a hallway bed/chair. A family member and/or friend is present and encouraged to stay. Sitter present at this time. 20:00 Safety Checks: Personal items have been removed. The door is open or patient has been sr6 placed in a hallway bed/chair. A family member and/or friend is present and encouraged to stay. Sitter present at this time. 20:15 Safety Checks: Personal items have been removed. The door is open or patient has been sr6 placed in a hallway bed/chair. A family member and/or friend is present and encouraged to stay. Sitter present at this time. 20:30 Safety Checks: Personal items have been removed. The door is open or patient has been sr6 placed in a hallway bed/chair. A family member and/or friend is present and encouraged to stay. Sitter present at this time. 20:45 Safety Checks: Personal items have been removed. The door is open or patient has been sr6 placed in a hallway bed/chair. A family member and/or friend is present and encouraged to stay. Sitter present at this time. 21:00 Safety Checks: Personal items have been removed. The door is open or patient has been sr6 placed in a hallway bed/chair. A family member and/or friend is present and encouraged to stay. Sitter present at this time. 21:15 Safety Checks: Personal items have been removed. The door is open or patient has been sr6 placed in a hallway bed/chair. A family member and/or friend is present and encouraged to stay. Sitter present at this time. 21:30 Safety Checks: Personal items have been removed. The door is open or patient has been sr6 placed in a hallway bed/chair. A family member and/or friend is present and encouraged to stay. Sitter present at this time. 21:45 Safety Checks: Personal items have been removed. The door is open or patient has been sr6 placed in a hallway bed/chair. A family member and/or friend is present and encouraged to stay. Sitter present at this time. 22:00 Safety Checks: Personal items have been removed. The door is open or patient has been sr6 placed in a hallway bed/chair. A family member and/or friend is present and encouraged to stay. Sitter present at this time. 22:15 Safety Checks: Personal items have been removed. The door is open or patient has been sr6 placed in a hallway bed/chair. A family member and/or friend is present and encouraged to stay. Sitter present at this time. 22:30 Safety Checks: Personal items have been removed. The door is open or patient has been sr6 placed in a hallway bed/chair. A family member and/or friend is present and encouraged to stay. Sitter present at this time. 22:45 Safety Checks: Personal items have been removed. The door is open or patient has been sr6 placed in a hallway bed/chair. A family member and/or friend is present and encouraged to stay. Sitter present at this time. 23:00 Safety Checks: Personal items have been removed. The door is open or patient has been sr6 placed in a hallway bed/chair. A family member and/or friend is present and encouraged to stay. Sitter present at this time. 23:00 Safety Checks: Other: voided freely. sr6 23:15 Safety Checks: Personal items have been removed. The door is open or patient has been sr6 placed in a hallway bed/chair. A family member and/or friend is present and encouraged to stay. Sitter present at this time. 23:30 Safety Checks: Personal items have been removed. The door is open or patient has been sr6 placed in a hallway bed/chair. A family member and/or friend is present and encouraged to stay. Sitter present at this time. 23:45 Safety Checks: Personal items have been removed. The door is open or patient has been sr6 placed in a hallway bed/chair. A family member and/or friend is present and encouraged to stay. Sitter present at this time. 11/18 00:00 Safety Checks: Personal items have been removed. The door is open or patient has been sr6 placed in a hallway bed/chair. A family member and/or friend is present and encouraged to stay. Sitter present at this time. 00:15 Safety Checks: Personal items have been removed. The door is open or patient has been sr6 placed in a hallway bed/chair. A family member and/or friend is present and encouraged to stay. Sitter present at this time. 00:30 Safety Checks: Personal items have been removed. The door is open or patient has been sr6 placed in a hallway bed/chair. A family member and/or friend is present and encouraged to stay. Sitter present at this time. 00:45 Safety Checks: Personal items have been removed. The door is open or patient has been sr6 placed in a hallway bed/chair. A family member and/or friend is present and encouraged to stay. Sitter present at this time. 01:00 Safety Checks: Personal items have been removed. The door is open or patient has been sr6 placed in a hallway bed/chair. A family member and/or friend is present and encouraged to stay. Sitter present at this time. 01:15 Safety Checks: Personal items have been removed. The door is open or patient has been sr6 placed in a hallway bed/chair. A family member and/or friend is present and encouraged to stay. Sitter present at this time. 01:30 Safety Checks: Personal items have been removed. The door is open or patient has been sr6 placed in a hallway bed/chair. A family member and/or friend is present and encouraged to stay. Sitter present at this time. 01:45 Safety Checks: Personal items have been removed. The door is open or patient has been sr6 placed in a hallway bed/chair. A family member and/or friend is present and encouraged to stay. Sitter present at this time. 02:00 Safety Checks: Personal items have been removed. The door is open or patient has been sr6 placed in a hallway bed/chair. A family member and/or friend is present and encouraged to stay. Sitter present at this time. 02:15 Safety Checks: Personal items have been removed. The door is open or patient has been sr6 placed in a hallway bed/chair. A family member and/or friend is present and encouraged to stay. Sitter present at this time. 02:30 Safety Checks: Personal items have been removed. The door is open or patient has been sr6 placed in a hallway bed/chair. A family member and/or friend is present and encouraged to stay. Sitter present at this time. 02:45 Safety Checks: Personal items have been removed. The door is open or patient has been sr6 placed in a hallway bed/chair. A family member and/or friend is present and encouraged to stay. Sitter present at this time. 03:00 Safety Checks: Personal items have been removed. The door is open or patient has been sr6 placed in a hallway bed/chair. A family member and/or friend is present and encouraged to stay. Sitter present at this time. 03:15 Safety Checks: Personal items have been removed. The door is open or patient has been sr6 placed in a hallway bed/chair. A family member and/or friend is present and encouraged to stay. Sitter present at this time. 03:30 Safety Checks: Personal items have been removed. The door is open or patient has been sr6 placed in a hallway bed/chair. A family member and/or friend is present and encouraged to stay. Sitter present at this time. 03:45 Safety Checks: Personal items have been removed. The door is open or patient has been sr6 placed in a hallway bed/chair. A family member and/or friend is present and encouraged to stay. Sitter present at this time. 04:00 Safety Checks: Personal items have been removed. The door is open or patient has been sr6 placed in a hallway bed/chair. A family member and/or friend is present and encouraged to stay. Sitter present at this time. 04:15 Safety Checks: Personal items have been removed. The door is open or patient has been sr6 placed in a hallway bed/chair. A family member and/or friend is present and encouraged to stay. Sitter present at this time. 04:30 Safety Checks: Personal items have been removed. The door is open or patient has been sr6 placed in a hallway bed/chair. A family member and/or friend is present and encouraged to stay. Sitter present at this time. 04:45 Safety Checks: Personal items have been removed. The door is open or patient has been sr6 placed in a hallway bed/chair. A family member and/or friend is present and encouraged to stay. Sitter present at this time. 05:00 Safety Checks: Personal items have been removed. The door is open or patient has been sr6 placed in a hallway bed/chair. A family member and/or friend is present and encouraged to stay. Sitter present at this time. 05:15 Safety Checks: Personal items have been removed. The door is open or patient has been sr6 placed in a hallway bed/chair. A family member and/or friend is present and encouraged to stay. Sitter present at this time. 05:30 Safety Checks: Personal items have been removed. The door is open or patient has been sr6 placed in a hallway bed/chair. A family member and/or friend is present and encouraged to stay. Sitter present at this time. 05:45 Safety Checks: Personal items have been removed. The door is open or patient has been sr6 placed in a hallway bed/chair. A family member and/or friend is present and encouraged to stay. Sitter present at this time. 06:00 Safety Checks: Personal items have been removed. The door is open or patient has been sr6 placed in a hallway bed/chair. A family member and/or friend is present and encouraged to stay. Sitter present at this time. 06:15 Safety Checks: Personal items have been removed. The door is open or patient has been sr6 placed in a hallway bed/chair. A family member and/or friend is present and encouraged to stay. Sitter present at this time. 06:30 Safety Checks: Personal items have been removed. The door is open or patient has been sr6 placed in a hallway bed/chair. A family member and/or friend is present and encouraged to stay. Sitter present at this time. 06:45 Safety Checks: Personal items have been removed. The door is open or patient has been sr6 placed in a hallway bed/chair. A family member and/or friend is present and encouraged to stay. Sitter present at this time. 06:57 Safety Checks: Personal items have been removed. The door is open or patient has been sr6 placed in a hallway bed/chair. A family member and/or friend is present and encouraged to stay. Sitter present at this time. 07:00 Safety checks: Items removed: yes. Door open/sign placed on door: yes. Family/friend mh5 present: yes. Family/friends encouraged to stay with patient. Sitter present: Yes. Other: PATIENT SLEEPING. 07:15 Safety checks: Items removed: yes. Door open/sign placed on door: yes. Family/friend mh5 present: yes. Family/friends encouraged to stay with patient. Sitter present: Yes. 07:27 Attending Physician role handed off by Erick Benjamin MD rn 07:27 Chintan Snow MD is Attending Physician. rn 07:30 Safety checks: Items removed: yes. Door open/sign placed on door: yes. Family/friend mh5 present: yes. Family/friends encouraged to stay with patient. Sitter present: Yes. Other: PATIENT SLEEPING. 07:45 Safety checks: Items removed: yes. Door open/sign placed on door: yes. Family/friend mh5 present: yes. Family/friends encouraged to stay with patient. Sitter present: Yes. 08:00 Safety checks: Items removed: yes. Door open/sign placed on door: yes. Family/friend mh5 present: yes. Family/friends encouraged to stay with patient. Sitter present: Yes. 08:15 Safety checks: Items removed: yes. Door open/sign placed on door: yes. Family/friend mh5 present: yes. Family/friends encouraged to stay with patient. Sitter present: Yes. 08:30 Safety checks: Items removed: yes. Door open/sign placed on door: yes. Family/friend mh5 present: yes. Family/friends encouraged to stay with patient. Sitter present: Yes. 09:00 Safety checks: Items removed: yes. Door open/sign placed on door: yes. Family/friend mh5 present: yes. Family/friends encouraged to stay with patient. Sitter present: Yes. Other: PATIENT SLEEPING. 09:15 Safety checks: Items removed: yes. Door open/sign placed on door: yes. Family/friend mh5 present: yes. Family/friends encouraged to stay with patient. Sitter present: Yes. Other: PATIENT SLEEPING. Administered Medications: 11/15 02:54 Drug: Potassium Effervescent Tablet 50 mEq Route: PO; ak1 02:54 Follow up: Response: No adverse reaction ak1 11/16 01:57 Drug: hydrOXYzine 50 mg Route: PO; ed1 02:30 Follow up: Response: No adverse reaction; Anxiety decreased ed1 11/17 00:09 Drug: hydrOXYzine 50 mg {Note: dr. benjamin informed and ordered.} Route: PO; rr5 03:00 Follow up: Response: No adverse reaction; Anxiety decreased jl3 11/18 01:25 Drug: hydrOXYzine 50 mg Route: PO; jb4 02:25 Follow up: Response: No adverse reaction; Marked relief of symptoms jb4 10:37 Drug: hydrOXYzine 50 mg Route: PO; ph 10:37 Follow up: Response: No adverse reaction; Medication administered at discharge. ph Intake: 11/16 21:50 PO: 250ml (Water); Total: 250ml. rr5 22:00 voided freely rr5 11/17 00:50 voided freely rr5 02:15 voided freely rr5 Output: 11/16 22:00 Other: 1; Total: 0ml. rr5 05 00:50 Other: 1; Total: 0ml. rr5 02:15 Other: 1; Total: 0ml. rr5 11/16 22:00 voided freely rr5 11/17 00:50 voided freely rr5 02:15 voided freely rr5 Outcome: 11/14 22:49 ER care complete, transfer ordered by . [facility] 11/18 10:13 Discharge ordered by . rn 10:48 Patient left the ED. ph 10:48 Discharged to home ambulatory, with significant other. ph 10:48 Condition: good 10:48 Discharge instructions given to patient, Instructed on discharge instructions, follow up and referral plans. Demonstrated understanding of instructions, follow-up care. Signatures: Montana Jordan MD MD cha Rittger, Kevin, MD MD kdr Salyer, Edna es Solis, Maria ms Ruiz, Claudia, RN RN cr4 Chintan Snow MD MD rn Riggs, Erika, RN RN ed1 Mihir Reynolds, RN RN jl3 Swathi Lay RN RN ak1 Sosa Bates, RN RN ph Matilde Ricardo, RN Thu Huerta RN RN tw2 Cameron Rodriguez, RN RN jb4 Barbie Jeffers Mayra Freeman ny Maru Guidry Michele, DEANGELO RN mg2 Susana Ash Raymond RN RN rr5 Westley Mayfield ag4 Ivory Tamez 1 Lois Gilbert 6 Yue Castro ss5 Rhianna Fuentes em5 Kamran Presley tr4 Corrections: (The following items were deleted from the chart) 11/15 06:29 00:59 Reassessment: Patient appears in no apparent distress at this time. No changes ak1 from previously documented assessment. ak1 19:44 19:42 Safety checks: Items removed: yes. Door open/sign placed on door: yes. ss5 Family/friend present: no. Sitter present: Yes. ss5 11/16 00:05 00:01 Safety checks: Door open/sign placed on door: yes. Family/friend present: yes. ss5 Sitter present: Yes. ss5 06:45 05 21:15 Safety checks: Door open/sign placed on door: yes. Family/friend present: ss5 yes. Sitter present: Yes. ss5 11/16 06:45 05 21:15 Safety checks: Items removed: yes. Door open/sign placed on door: yes. ss5 Family/friend present: yes. Sitter present: Yes. ss5 11/16 11:15 07:00 Reassessment: Patient appears in no apparent distress at this time. Patient tw2 and/or family updated on plan of care and expected duration. Pain level reassessed. Patient is alert, oriented x 3, equal unlabored respirations, skin warm/dry/pink. Assumed Primary Nurse for this pt. Pt appears to be sleeping at this time, significant other at bedside at this time. tw2 12:00 11:44 No apparent distress. Resting quietly. em5 em5 12:00 11:45 Safety Checks: Personal items have been removed. The door is open or patient has em5 been placed in a hallway bed/chair. A family member and/or friend is present and encouraged to stay. Sitter present at this time. em5 12:00 11:45 Appears to be sleeping. em5 em5 12:37 12:33 Reassessment: No changes from previously documented assessment. em5 em5 12:38 12:33 General: Appears in no apparent distress. comfortable, Behavior is calm, em5 em5 19:01 18:50 BP 108 / 72; Pulse 84bpm; Resp 18bpm; Pulse Ox 92% RA; Temp 98.5F; kj1 kj1 11/18 04:01 00:00 BP 108 / 69; Pulse 74bpm; Resp 18bpm; Pulse Ox 97%; Temp 98.3F; Pain 0/10; sr6 sr6 06:30 05:00 BP 114 / 68; Pulse 72bpm; Resp 17bpm; Pulse Ox 98%; Temp 98.4F; Pain 0/10; sr6 sr6
[2018-11-14 23:03] LABS: Urine Blood 3+ (NEG); Urine Glucose NEGATIVE (NEG); Urine Protein 1+ (NEG)
[2018-11-14 23:03] LABS: Absolute Lymphocytes (CBC) 1.8 K/uL (0.7-4.9); Absolute Monocytes 0.7 K/uL (0.1-1.3); Absolute Neutrophil 4.3 K/uL (1.8-8.0); Basophils % 0.7 % (0-1.3); Eosinophils % 1.1 % (0-4.4); Hematocrit 39.8 % (36.0-45.0); Lymphocytes % 25.6 % (15.3-44.8); MPV 9.8 fL (7.6-11.3); Monocytes % 10.6 % (3.3-12.3); RBC Red Blood Cell Count 5.03 M/uL (3.86-4.86)
[2018-11-14 23:06] LABS: Protime INR 1.13
[2018-11-14 23:11] LABS: Barbiturates NEGATIVE (NEGATIVE); Benzodiazepines NEGATIVE (NEGATIVE); Cocaine NEGATIVE (NEGATIVE); METHAMPHETAM NEGATIVE (NEGATIVE); Methadone NEGATIVE (NEGATIVE); Opiates NEGATIVE (NEGATIVE); Phencyclidine NEGATIVE (NEGATIVE); THC Cannibis NEGATIVE (NEGATIVE)
[2018-11-14 23:16] LABS: ALT/SGPT 22 U/L (12-78); AST/SGOT 15 U/L (15-37); Alkaline Phosphatase 112 U/L (45-117); BUN Blood Urea Nitrogen 12 mg/dL (7-18); Bicarbonate 28 mmol/L (21-32); Bilirubin Direct < 0.1 mg/dL (0-0.2); Bilirubin Total 0.2 mg/dL (0.2-1.0); Glucose Level 81 mg/dL (74-106); Potassium 3.4 mmol/L (3.5-5.1); Protein, Total 8.1 g/dL (6.4-8.2); Sodium Level 141 mmol/L (136-145)
[2018-11-15] MEDS ORDERED: POTASSIUM 25 MEQ EFFERV TAB ONE (03:02)
--- NOTE | 2018-11-15 07:12 | EKG ---
Test Date: 2018-11-14 Test Time: 23:01:44 Harpsichord Maker: GABRIEL MEASUREMENT RESULTS: Intervals: Rate: 69 WA: 144 QRSD: 90 QT: 388 QTc: 415 [place]: P: 10 WA: 144 QRS: 17 T: 9 INTERPRETIVE STATEMENTS: Sinus rhythm with marked sinus arrhythmia Otherwise normal ECG No previous ECG available for comparison Electronically Signed On 11-15-18 07:11:13 CDT by Aniceto Benoit
[2018-11-16] MEDS ORDERED: hydrOXYzine HCl 25 MG TAB ONE (02:06)
[2018-11-17] MEDS ORDERED: hydrOXYzine HCl 25 MG TAB ONE (00:20)
[2018-11-18] MEDS ORDERED: hydrOXYzine HCl 25 MG TAB ONE ×2 (01:35→10:37)
== END 2018-11-18 10:48 | disposition home or self-care (01) ==
LOC: ER 22:15
DX: F41.9 Anxiety disorder, unspecified (principal); R45.851 Suicidal ideations; F31.9 Bipolar disorder, unspecified
CPT/HCPCS: 36415; 80048; 80076; 80307; 80320; 80329; 81003; 81025; 85025; 85610; 85730; 93005; 99285

== ENCOUNTER 2018-11-18 15:50 | Emergency (ER) | payer SELFPAY ==
--- OUTSIDE RECORDS SUMMARY | 2018-11-18 16:39 | XMS REPORT ---
:1995 [facility] Address [address] [place] [address] Dr. Richardson [address] [place] [id number] Care Team Providers Name Role Phone Unavailable Unavailable Unavailable Problems This patient has no known problems. Allergies, Adverse Reactions, Alerts This patient has no known allergies or adverse reactions. Medications This patient has no known medications.
--- NOTE | 2018-11-18 17:03 | EDPHYS ---
Physician Documentation [facility] Name: Kristyn Crain Age: 22 yrs Sex: Female : 1995 Arrival Date: 11/18/2018 Time: 15:53 Bed 14 Private MD: None, None ED Physician Chintan Snow HPI: 11/18 16:52 This 22 yrs old Female presents to ER via Ambulatory with complaints of rn Anxiety, Suicidal Ideation. 16:52 The patient presents to the emergency department with anxiety, suicide ideation. rn Severity of symptoms: At their worst the symptoms were moderate in the emergency department the symptoms are unchanged. The patient has experienced similar episodes in the past. Just discharged a while ago, states never made it home, got more anxious and doesn't feel safe going home, drove back for further care and transfer this time, no new attempt, did not overdose. . Historical: - Allergies: 16:03 No Known Allergies; sv - PMHx: 16:03 Anxiety; Bipolar disorder; Depression; sv - PSHx: 16:03 None; sv - Immunization history:: Adult Immunizations unknown. - Family history:: not pertinent. - Social history:: Smoking status: Patient/guardian denies using tobacco. - Ebola Screening: : No symptoms or risks identified at this time. - Hospitalizations: : No recent hospitalization is reported. ROS: 16:52 Constitutional: Negative for fever, chills, and weight loss, Eyes: Negative for injury, rn pain, redness, and discharge, Neck: Negative for injury, pain, and swelling, Cardiovascular: Negative for chest pain, palpitations, and edema, Respiratory: Negative for shortness of breath, cough, wheezing, and pleuritic chest pain, Abdomen/GI: Negative for abdominal pain, nausea, vomiting, diarrhea, and constipation, MS/Extremity: Negative for injury and deformity, Skin: Negative for injury, rash, and discoloration, Neuro: Negative for headache, weakness, numbness, tingling, and seizure. Exam: 17:01 Constitutional: This is a well developed, well nourished patient who is awake, alert, rn and in no acute distress. Head/Face: Normocephalic, atraumatic. Eyes: Pupils equal round and reactive to light, extra-ocular motions intact. Lids and lashes normal. Conjunctiva and sclera are non-icteric and not injected. Cornea within normal limits. Periorbital areas with no swelling, redness, or edema. Neck: Trachea midline, no thyromegaly or masses palpated, and no cervical lymphadenopathy. Supple, full range of motion without nuchal rigidity, or vertebral point tenderness. No Meningismus. Respiratory: No increased work of breathing, no retractions or nasal flaring. Abdomen/GI: soft, non-tender Skin: Warm, dry with normal turgor. Normal color with no rashes, no lesions, and no evidence of cellulitis. MS/ Extremity: Pulses equal, no cyanosis. Neurovascular intact. Full, normal range of motion. Equal circumference. Neuro: Awake and alert, GCS 15, oriented to person, place, time, and situation. Cranial nerves II-XII grossly intact. Motor strength 5/5 in all extremities. Sensory grossly intact. Cerebellar exam normal. Normal gait. Vital Signs: 16:03 BP 102 / 78; Pulse 89; Resp 14; Temp 97.8; Pulse Ox 99% ; Weight 78.93 kg; Height 5 ft. sv 2 in. (157.48 cm); Pain 0/10; 17:00 BP 101 / 72; Pulse 91; Resp 16; Pulse Ox 99% on R/A; ph 18:47 BP 103 / 70; Pulse 87; Resp 18; Temp 98.0; Pulse Ox 100% on R/A; ph 16:03 Body Mass Index 31.82 (78.93 kg, 157.48 cm) sv MDM: 16:40 Patient medically screened. rn 17:01 Differential diagnosis: depression, suicidal ideation. Data reviewed: vital signs, rn nurses notes, old medical records, lab test result(s), and as a result, I will admit patient. Counseling: I had a detailed discussion with the patient and/or guardian regarding: the historical points, exam findings, and any diagnostic results supporting the discharge/admit diagnosis, lab results, the need to transfer to another facility, [facility] does not immediately have the required specialist. ED course: Accepted for transfer to [facility] for psychiatric evaluation and care. . 11/18 17:30 Order name: Diet 2 Gm Sodium; Complete Time: 17:30 mh5 11/18 17:30 Order name: Diet Regular; Complete Time: 17:31 mh5 Administered Medications: No medications were administered Disposition: 11/18/18 17:03 Transfer ordered to Other Acute Care Facility. Diagnosis are Suicidal ideations, Anxiety disorder, unspecified. - Reason for transfer: Higher level of care. - Accepting physician is Dr. Rich. - Condition is Stable. - Problem is an ongoing problem. - Symptoms are unchanged. Signatures: Dispatcher [employer] EDJosey Valle RN RN sv Nieto, Roman, MD MD rn Hall, Patricia, RN RN ph Corrections: (The following items were deleted from the chart) 17:03 17:03 11/18/2018 17:03 Transfer ordered to Other Acute Care Facility. Diagnosis is rn Suicidal ideations. Reason for transfer: Higher level of care. Accepting physician is Dr. Rich. Condition is Stable. Problem is an ongoing problem. Symptoms are unchanged. rn 17:36 16:45 BASIC METABOLIC PANEL+C.LAB.BRZ ordered. EDMS EDMS 17:36 16:45 ACETAMINOPHEN+C.LAB.BRZ ordered. EDMS EDMS 17:36 16:45 SALICYLATE+C.LAB.BRZ ordered. EDMS EDMS 17:37 16:45 CBC+H.LAB.BRZ ordered. EDMS EDMS 18:48 17:03 11/18/2018 17:03 Transfer ordered to Other Acute Care Facility. Diagnosis is ph Suicidal ideations; Anxiety disorder, unspecified. Reason for transfer: Higher level of care. Accepting physician is Dr. Rich. Condition is Stable. Problem is an ongoing problem. Symptoms are unchanged. rn
--- NOTE | 2018-11-18 17:03 | ER ---
Nurse's Notes [facility] Name: Kristyn Crain Age: 22 yrs Sex: Female : 1995 Arrival Date: 11/18/2018 Time: 15:53 Bed 14 Private MD: None, None Diagnosis: Suicidal ideations;Anxiety disorder, unspecified Presentation: 11/18 16:01 Presenting complaint: Patient states: anxiety and suicidal ideation with plan. Was here sv in the ER today and discharged. Pt states that she's unable to handle everything. Transition of care: patient was not received from another setting of care. Onset of symptoms was November 18, 2018. Risk Assessment: Do you want to hurt yourself or someone else? Patient reports desire/thoughts of hurting themselves or someone else. Provider notified. Initial Sepsis Screen: Does the patient meet any 2 criteria? No. Patient's initial sepsis screen is negative. Does the patient have a suspected source of infection? No. Patient's initial sepsis screen is negative. Care prior to arrival: None. 16:01 Method Of Arrival: Ambulatory sv 16:01 Acuity: ISAIAH 2 sv Historical: - Allergies: 16:03 No Known Allergies; sv - PMHx: 16:03 Anxiety; Bipolar disorder; Depression; sv - PSHx: 16:03 None; sv - Immunization history:: Adult Immunizations unknown. - Family history:: not pertinent. - Social history:: Smoking status: Patient/guardian denies using tobacco. - Ebola Screening: : No symptoms or risks identified at this time. - Hospitalizations: : No recent hospitalization is reported. Screenin:30 Abuse screen: Denies threats or abuse. Denies injuries from another. Nutritional ph screening: No deficits noted. Tuberculosis screening: No symptoms or risk factors identified. Fall Risk None identified. Assessment: 16:55 Reassessment: Patient appears in no apparent distress at this time. Report given to ayo Hughes RN at [facility] , ERP to do doctor to doctor report. 17:00 General: Appears in no apparent distress. comfortable, well groomed, Behavior is ph cooperative, anxious. Pain: Denies pain. Neuro: Level of Consciousness is awake, alert, obeys commands, Oriented to person, place, time, situation. Cardiovascular: Capillary refill < 3 seconds in bilateral fingers Patient's skin is warm and dry. Respiratory: Airway is patent Respiratory effort is even, unlabored, Respiratory pattern is regular, symmetrical. GI: No signs and/or symptoms were reported involving the gastrointestinal system. Patient currently denies abdominal pain, diarrhea, nausea, vomiting. Derm: Skin is intact, is healthy with good turgor, Skin is pink, warm \T\ dry. Musculoskeletal: Circulation, motion, and sensation intact. Range of motion: intact in all extremities. 18:42 Reassessment: Patient appears in no apparent distress at this time. Patient and/or ph family updated on plan of care and expected duration. Pain level reassessed. Patient is alert, oriented x 3, equal unlabored respirations, skin warm/dry/pink. Report given to EMS, pt transferred to [facility]. Vital Signs: 16:03 BP 102 / 78; Pulse 89; Resp 14; Temp 97.8; Pulse Ox 99% ; Weight 78.93 kg; Height 5 ft. sv 2 in. (157.48 cm); Pain 0/10; 17:00 BP 101 / 72; Pulse 91; Resp 16; Pulse Ox 99% on R/A; ph 18:47 BP 103 / 70; Pulse 87; Resp 18; Temp 98.0; Pulse Ox 100% on R/A; ph 16:03 Body Mass Index 31.82 (78.93 kg, 157.48 cm) sv ED Course: 15:53 Patient arrived in ED. mr 15:54 None, None is Private Physician. mr 16:02 Triage completed. sv 16:40 Chintan Snow MD is Attending Physician. rn 16:42 Sosa Bates RN is Primary Nurse. ph 16:49 Arm band placed on. ph 17:00 Safety Checks: Personal items have been removed. The door is open or patient has been ph placed in a hallway bed/chair. A family member and/or friend is present and encouraged to stay. Sitter present at this time. 17:00 Safety checks: Items removed: yes. Door open/sign placed on door: yes. Family/friend mh5 present: yes. Family/friends encouraged to stay with patient. Sitter present: Yes. 17:15 Safety Checks: Personal items have been removed. The door is open or patient has been ph placed in a hallway bed/chair. A family member and/or friend is present and encouraged to stay. Sitter present at this time. 17:15 Safety checks: Items removed: yes. Door open/sign placed on door: yes. Family/friend mh5 present: yes. Family/friends encouraged to stay with patient. Sitter present: Yes. 17:28 Missed attempt(s): 22 gauge in left forearm. antecubital area. mh5 17:29 Warm blanket given. mh5 17:30 Safety Checks: Personal items have been removed. The door is open or patient has been ph placed in a hallway bed/chair. A family member and/or friend is present and encouraged to stay. Sitter present at this time. 17:30 Safety checks: Items removed: yes. Door open/sign placed on door: yes. Family/friend mh5 present: yes. Family/friends encouraged to stay with patient. Sitter present: Yes. 17:45 Safety Checks: Personal items have been removed. The door is open or patient has been ph placed in a hallway bed/chair. A family member and/or friend is present and encouraged to stay. Sitter present at this time. 17:45 Safety checks: Items removed: yes. Door open/sign placed on door: yes. Family/friend mh5 present: yes. Family/friends encouraged to stay with patient. Sitter present: Yes. 18:00 Safety Checks: Personal items have been removed. The door is open or patient has been ph placed in a hallway bed/chair. A family member and/or friend is present and encouraged to stay. Sitter present at this time. 18:00 Safety checks: Items removed: yes. Door open/sign placed on door: yes. Family/friend mh5 present: yes. Family/friends encouraged to stay with patient. Sitter present: Yes. 18:15 Safety Checks: Personal items have been removed. The door is open or patient has been ph placed in a hallway bed/chair. A family member and/or friend is present and encouraged to stay. Sitter present at this time. 18:30 Safety Checks: Personal items have been removed. The door is open or patient has been ph placed in a hallway bed/chair. A family member and/or friend is present and encouraged to stay. Sitter present at this time. 18:30 Patient has correct armband on for positive identification. Bed in low position. Call ph light in reach. Side rails up X 1. Pulse ox on. NIBP on. 18:43 No provider procedures requiring assistance completed. Patient did not have IV access ph during this emergency room visit. 18:45 Safety Checks: Personal items have been removed. The door is open or patient has been ph placed in a hallway bed/chair. A family member and/or friend is present and encouraged to stay. Sitter present at this time. Administered Medications: No medications were administered Outcome: 17:03 ER care complete, transfer ordered by . rn 18:46 Transferred by ground EMS [place]. Transfer form completed. Note: [facility] 18:46 Condition: stable 18:46 Instructed on the need for transfer. 18:48 Patient left the ED. ph Signatures: Josey Sena RN RN sv Rivera, Mary mr Nieto, Roman, MD MD rn Hall, Patricia, RN RN ph Martinez, Maria [facility]ill [facility] Corrections: (The following items were deleted from the chart) 18:45 17:05 Reassessment: Patient appears in no apparent distress at this time. Report given ph to Ellen BRIGHT at [facility] , ERP to do doctor to doctor report ph
== END 2018-11-18 18:48 ==
LOC: ER 15:50
DX: R45.851 Suicidal ideations (principal); F41.9 Anxiety disorder, unspecified; F31.9 Bipolar disorder, unspecified; F32.9 Major depressive disorder, single episode, unspecified
CPT/HCPCS: 99285

== ENCOUNTER 2018-11-19 23:39 | Emergency (ER) | payer SELFPAY ==
[2018-11-20] MEDS ORDERED: hydrOXYzine HCl 25 MG TAB ONE (00:29)
--- NOTE | 2018-11-20 00:54 | ER ---
Nurse's Notes [facility] Name: Kristyn Crain Age: 22 yrs Sex: Female : 1995 Arrival Date: 11/19/2018 Time: 23:41 Bed 15 Private MD: Diagnosis: Anxiety disorder, unspecified Presentation: 11/19 23:57 Presenting complaint: Patient states: Reports she was here yesterday and was ea transferred to [facility]. Pt reports she was discharged from there yesterday evening. Reports she has been feeling "weird" since not taking hydroxyzine Sunday morning. Transition of care: patient was not received from another setting of care. Onset of symptoms was November 19, 2018. Risk Assessment: Do you want to hurt yourself or someone else? Patient reports no desire to harm self or others. Initial Sepsis Screen: Does the patient meet any 2 criteria? No. Patient's initial sepsis screen is negative. Does the patient have a suspected source of infection? No. Patient's initial sepsis screen is negative. Care prior to arrival: None. 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 - Social history:: Smoking status: Patient/guardian denies using tobacco. - Ebola Screening: : No symptoms or risks identified at this time. Screenin:00 Abuse screen: Denies threats or abuse. Nutritional screening: No deficits noted. ea Tuberculosis screening: No symptoms or risk factors identified. Fall Risk None identified. Assessment: 00:20 Reassessment:. General: Appears in no apparent distress. comfortable, Behavior is tl2 cooperative, appropriate for age, anxious. General: Pt reports being released from [facility] yesterday and today started feeling "jittery and out of it". Concerned that it may be from not taking the hydroxyzine . Pain: Denies pain. Neuro: Level of Consciousness is awake, alert, obeys commands, Oriented to person, place, time, situation. Cardiovascular: Denies chest pain. Respiratory: Airway is patent Respiratory effort is even, unlabored, Respiratory pattern is regular, symmetrical. GI: No signs and/or symptoms were reported involving the gastrointestinal system. : No signs and/or symptoms were reported regarding the genitourinary system. Derm: Skin is pink, warm \\T\\ dry. 01:17 Reassessment: Patient appears in no apparent distress at this time. Patient and/or tl2 family updated on plan of care and expected duration. Pain level reassessed. Patient is alert, oriented x 3, equal unlabored respirations, skin warm/dry/pink. pt verbalized understanding of discharge instructions and need for prescription usage Patient states feeling better. Vital Signs: 11/19 23:59 BP 117 / 84; Pulse 93; Resp 18; Temp 98.6; Pulse Ox 98% ; Weight 78.93 kg; Height 5 ft. ea 2 in. (157.48 cm); Pain 0/10; 11/20 01:17 BP 117 / 84; Pulse 88; Resp 18; Pulse Ox 100% on R/A; tl2 11/19 23:59 Body Mass Index 31.82 (78.93 kg, 157.48 cm) ea ED Course: 11/19 23:41 Patient arrived in ED. es 23:59 Triage completed. ea 11/20 00:02 Arm band placed on right wrist. Patient placed in an exam room, on a stretcher, on ea pulse oximetry. 00:02 Patient has correct armband on for positive identification. Bed in low position. Call ea light in reach. Adult w/ patient. 00:06 Coy Salnias PA is PHCP. jr8 00:07 Lexa Hernandes MD is Attending Physician. jr8 00:20 Lynda Mars RN is Primary Nurse. tl2 00:20 No provider procedures requiring assistance completed. tl2 01:17 Patient did not have IV access during this emergency room visit. tl2 Administered Medications: 00:23 Drug: hydrOXYzine 50 mg Route: PO; tl2 01:18 Follow up: Response: No adverse reaction; Marked relief of symptoms tl2 Outcome: 00:54 Discharge ordered by . jr8 01:17 Discharged to home ambulatory, with friend. tl2 01:17 Condition: stable 01:17 Discharge instructions given to patient, Instructed on discharge instructions, follow up and referral plans. medication usage, Demonstrated understanding of instructions, follow-up care, medications. 01:18 Patient left the ED. tl2 Signatures: Liz Damian Josh, PA PA jr8 Lynda Mars RN RN tl2 Ros Rosado RN RN ea
--- NOTE | 2018-11-20 00:54 | EDPHYS ---
Physician Documentation [facility] Name: Kristyn Crain Age: 22 yrs Sex: Female : 1995 Arrival Date: 11/19/2018 Time: 23:41 Bed 15 Private MD: ED Physician Lexa Hernandes HPI: 11/20 00:13 This 22 yrs old Female presents to ER via Ambulatory with complaints of jr8 Anxiety. 00:13 Onset: The symptoms/episode began/occurred acutely, today. Associated signs and jr8 symptoms: The patient has no apparent associated signs or symptoms. Severity of symptoms: At their worst the symptoms were mild in the emergency department the symptoms are unchanged. The patient has experienced similar episodes in the past, several times. The patient has been recently seen by a physician:. Patient was recently in ED for 5 days for SI. Was transferred to [facility] for psych evaluation and was d/c'd today. Stated that she has not had her Hydroxizine since early Sunday. Feeling odd now. Has not wanted to eat today. Feels numb all over. Has not been able to fill Hydroxizine at pharmacy yet . 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 - Social history:: Smoking status: Patient/guardian denies using tobacco. - Ebola Screening: : No symptoms or risks identified at this time. ROS: 00:13 Eyes: Negative for injury, pain, redness, and discharge, ENT: Negative for injury, jr8 pain, and discharge, Neck: Negative for injury, pain, and swelling, Cardiovascular: Negative for chest pain, palpitations, and edema, Respiratory: Negative for shortness of breath, cough, wheezing, and pleuritic chest pain, Abdomen/GI: Negative for abdominal pain, nausea, vomiting, diarrhea, and constipation, Back: Negative for injury and pain, MS/Extremity: Negative for injury and deformity, Skin: Negative for injury, rash, and discoloration, Neuro: Negative for headache, weakness, numbness, tingling, and seizure. 00:13 Psych: Positive for anxiety, Negative for depression, auditory hallucinations, visual hallucinations, homicidal ideation, insomnia, suicide gesture, suicidal ideation. Exam: 00:13 Eyes: Pupils equal round and reactive to light, extra-ocular motions intact. Lids and jr8 lashes normal. Conjunctiva and sclera are non-icteric and not injected. Cornea within normal limits. Periorbital areas with no swelling, redness, or edema. ENT: Nares patent. No nasal discharge, no septal abnormalities noted. Tympanic membranes are normal and external auditory canals are clear. Oropharynx with no redness, swelling, or masses, exudates, or evidence of obstruction, uvula midline. Mucous membranes moist. Neck: Trachea midline, no thyromegaly or masses palpated, and no cervical lymphadenopathy. Supple, full range of motion without nuchal rigidity, or vertebral point tenderness. No Meningismus. Cardiovascular: Regular rate and rhythm with a normal S1 and S2. No gallops, murmurs, or rubs. Normal PMI, no JVD. No pulse deficits. Respiratory: Lungs have equal breath sounds bilaterally, clear to auscultation and percussion. No rales, rhonchi or wheezes noted. No increased work of breathing, no retractions or nasal flaring. Abdomen/GI: Soft, non-tender, with normal bowel sounds. No distension or tympany. No guarding or rebound. No evidence of tenderness throughout. Back: No spinal tenderness. No costovertebral tenderness. Full range of motion. Skin: Warm, dry with normal turgor. Normal color with no rashes, no lesions, and no evidence of cellulitis. MS/ Extremity: Pulses equal, no cyanosis. Neurovascular intact. Full, normal range of motion. Neuro: Awake and alert, GCS 15, oriented to person, place, time, and situation. Cranial nerves II-XII grossly intact. Motor strength 5/5 in all extremities. Sensory grossly intact. Cerebellar exam normal. Normal gait. 00:13 Psych: Behavior/mood is cooperative, anxious, Affect is calm, Oriented to person, place, time, Patient has no thoughts/intents to harm self or others. Judgement / Insight is normal. Memory is normal. Delusions/hallucinations are not present. Vital Signs: 11/19 23:59 BP 117 / 84; Pulse 93; Resp 18; Temp 98.6; Pulse Ox 98% ; Weight 78.93 kg; Height 5 ft. ea 2 in. (157.48 cm); Pain 0/10; 11/20 01:17 BP 117 / 84; Pulse 88; Resp 18; Pulse Ox 100% on R/A; tl2 11/19 23:59 Body Mass Index 31.82 (78.93 kg, 157.48 cm) ea MDM: 00:07 Patient medically screened. jr8 00:53 Data reviewed: vital signs, nurses notes, and as a result, I will discharge patient. jr8 Data interpreted: Pulse oximetry: on room air is 98 %. Interpretation: normal. Counseling: I had a detailed discussion with the patient and/or guardian regarding: the historical points, exam findings, and any diagnostic results supporting the discharge/admit diagnosis, the need for outpatient follow up, a psychiatrist, to return to the emergency department if symptoms worsen or persist or if there are any questions or concerns that arise at home. Response to treatment: the patient's symptoms have markedly improved after treatment. Administered Medications: 00:23 Drug: hydrOXYzine 50 mg Route: PO; tl2 01:18 Follow up: Response: No adverse reaction; Marked relief of symptoms tl2 Disposition: 04:24 Co-signature as Attending Physician, Lexa Hernandes MD I agree with the assessment and wa plan of care. Disposition: 11/20/18 00:54 Discharged to Home. Impression: Anxiety disorder, unspecified. - Condition is Stable. - Discharge Instructions: Panic Attacks, Generalized Anxiety Disorder. - Medication Reconciliation Form, Thank You Letter, Antibiotic Education, Prescription Opioid Use form. - Follow up: Private Physician; When: 5 - 6 days; Reason: Recheck today's complaints, Continuance of care, Re-evaluation by your physician. - Problem is new. - Symptoms have improved. Signatures: Coy Salinas PA PA jr8 Lynda Mars RN RN tl2 Ros Rosado RN RN ea [place], William, MD MD pr Corrections: (The following items were deleted from the chart) 01:18 00:54 11/20/2018 00:54 Discharged to Home. Impression: Anxiety disorder, unspecified. tl2 Condition is Stable. Forms are Medication Reconciliation Form, Thank You Letter, Antibiotic Education, Prescription Opioid Use. Follow up: Private Physician; When: 5 - 6 days; Reason: Recheck today's complaints, Continuance of care, Re-evaluation by your physician. Problem is new. Symptoms have improved. jr8
== END 2018-11-20 01:18 | disposition home or self-care (01) ==
LOC: ER 23:39
DX: F41.9 Anxiety disorder, unspecified (principal); F31.9 Bipolar disorder, unspecified
CPT/HCPCS: 99283